=== PATIENT | male | born 1955 | race Caucasian/White ===

== ENCOUNTER 2020-09-16 08:00 | Inpatient (IN) ==
[2020-09-16] MEDS ORDERED: GLUCAGON 1 MG VIAL IM PRN ×2 (10:43)
[2020-09-16] MEDS ORDERED: DEXTROSE 50% 25 GM/50 ML VIAL IV PRN ×2 (10:43)
[2020-09-16 12:07] LABS: Basophils % 0.2 % (0.0-0.8); Eosinophils % 0.7 % (0.00-10.9); Hematocrit 39.4 VOL% (42.0-52.0); Hemoglobin 12.8 GM/DL (14.0-18.0); Immature Granulocytes % 0.5 %; Immature Granulocytes Absolute 0.03 #; Lymphocytes # 0.8 10*3/uL (1.4-4.0); Mean Corpuscular HGB Conc 32.5 GM/DL (32-36); Mean Corpuscular Volume 97.3 FL (87-102); Mean Platelet Volume 9.6 FL (9.6-12.0); Monocytes % 12.2 % (1.7-12.7); Neutrophils % 72.4 % (38.7-73.9); Platelet Count 88 T/CUMM (130-400); Red Blood Count 4.05 MC/CUMM (3.8-5.5); Red Cell Distribution Width 13.6 % (9.3-17.3)
[2020-09-16] MEDS: INSULIN REGULAR 100 UNIT/ML SUBCUT SCH ×3 (12:07→21:13)
[2020-09-16 12:29] LABS: Albumin 3.3 G/DL (3.4-5.0); Bilirubin,Total 0.5 MG/DL (0.2-1.0); Calcium 8.5 MG/DL (8.5-10.1); Osmolality,Calculated 267.4 MOS/KG (273-304); Potassium 3.5 MMOL/L (3.5-5.1); Total Protein 7.2 G/DL (6.4-8.2)
[2020-09-16] MEDS ORDERED: LOPERAMIDE 2 MG CAPSULE PO PRN (12:35)
[2020-09-16 12:37] LABS: CKMB % 3.9 %
[2020-09-16 12:40] LABS: High Sensitive Troponin I* 2822.6 ng/L (0-78)
[2020-09-16 13:02] LABS: Platelet Estimate Adequate; Polychromasia Slight
[2020-09-16] MEDS: SODIUM CHLORIDE 5% OPH SOLN 15 ML BOTTLE BOTH EYES PRN (20:56)
[2020-09-16] MEDS: CLORAZEPATE 3.75 MG TABLET PO PRN (21:13)
[2020-09-17] MEDS: INSULIN REGULAR 100 UNIT/ML SUBCUT SCH ×3 (08:12→15:47)
[2020-09-17] MEDS: carBAMazepine 200 MG TABLET PO SCH ×2 (15:45→22:37)
[2020-09-17] MEDS: LOSARTAN 50 MG TABLET PO SCH (22:35)
[2020-09-17] MEDS: carvediloL 12.5 MG TABLET PO SCH (22:36)
[2020-09-17] MEDS: CLORAZEPATE 3.75 MG TABLET PO PRN (22:36)
[2020-09-17] MEDS: SODIUM CHLORIDE 5% OPH SOLN 15 ML BOTTLE BOTH EYES PRN (22:40)
[2020-09-18] MEDS: INSULIN REGULAR 100 UNIT/ML SUBCUT SCH ×5 (00:21→23:36)
[2020-09-18] MEDS: CLORAZEPATE 3.75 MG TABLET PO PRN ×2 (04:27→22:16)
[2020-09-18 04:48] LABS: ABG Base Excess 9.3 MMOL/L (-2.5-2.5); ABG Oxygen Saturation 97.5 % (95-100); ABG PCO2 60.3 MM HG (35-48); ABG PH 7.393 (7.35-7.45); ABG PO2 95.9 MM HG (80-95); ABG TCO2 32.2 MMOL/L (23-27); Allen Test Positive; Pt O2 Delivery Device Venturi Mask
[2020-09-18 05:24] LABS: Basophils % 0.2 % (0.0-0.8); Eosinophils # 0.1 10*3/uL (0.0-0.87); Eosinophils % 2.4 % (0.00-10.9); Hematocrit 37.7 VOL% (42.0-52.0); Hemoglobin 12.9 GM/DL (14.0-18.0); Immature Granulocytes % 0.6 %; Immature Granulocytes Absolute 0.03 #; Lymphocytes # 0.8 10*3/uL (1.4-4.0); Lymphocytes % 14.8 % (21.2-54.2); Mean Corpuscular HGB Conc 34.2 GM/DL (32-36); Mean Corpuscular Volume 94.3 FL (87-102); Mean Platelet Volume 9.3 FL (9.6-12.0); Monocytes % 7.5 % (1.7-12.7); Neutrophils % 74.5 % (38.7-73.9); Platelet Count 82 T/CUMM (130-400); White Blood Count 5.3 T/CUMM (4-12)
[2020-09-18 05:45] LABS: Alanine Aminotransferase 95 U/L (16-61); Albumin 3.2 G/DL (3.4-5.0); Alkaline Phosphatase 74 U/L (45-117); Aspartate Amino Transferase 48 U/L (0-37); Blood Urea Nitrogen 7 MG/DL (7-18); Carbon Dioxide 33 MMOL/L (21-32); Estimated Glom Filtration Rate 191 ML/MIN; Glucose 96 MG/DL (74-106); Osmolality,Calculated 267.1 MOS/KG (273-304); Potassium 3.5 MMOL/L (3.5-5.1); Sodium 135 MMOL/L (136-145); Total Protein 6.7 G/DL (6.4-8.2)
[2020-09-18 06:08] LABS: Platelet Estimate Decreased
[2020-09-18 06:09] LABS: Anisocytosis 1+; Macrocytosis Slight
[2020-09-18] MEDS: CHLORHEXIDINE 4% SOLN 118 ML BOTTLE TOP SCH ×3 (08:30→21:57)
[2020-09-18] MEDS: carBAMazepine 200 MG TABLET PO SCH ×2 (09:34→22:16)
[2020-09-18] MEDS: LOSARTAN 50 MG TABLET PO SCH (09:34)
[2020-09-18] MEDS: carvediloL 25 MG TABLET PO SCH ×2 (09:34→22:16)
[2020-09-18] MEDS: FUROSEMIDE 40 MG TABLET PO SCH ×2 (09:35→18:18)
[2020-09-18] MEDS: CHLORHEXIDINE 0.12% ORAL RINSE 60 ML BOTTLE SWISH/SPIT SCH ×2 (09:36→23:25)
[2020-09-18] MEDS: carvediloL 12.5 MG TABLET PO SCH (09:55)
[2020-09-18] MEDS ORDERED: SODIUM CHLORIDE 0.9% 1,000 ML IV SCH (11:00)
[2020-09-18] MEDS: POTASSIUM CHLORIDE 20 MEQ TABLET PO PRN ×2 (13:26→16:54)
[2020-09-18] MEDS: SODIUM CHLORIDE 5% OPH SOLN 15 ML BOTTLE BOTH EYES PRN (22:48)
[2020-09-19] MEDS ORDERED: PAPAVERINE 60 MG/2 ML VIAL ONE (04:19)
[2020-09-19] MEDS ORDERED: VANCOMYCIN 500 MG VIAL ONE (04:19)
[2020-09-19] MEDS ORDERED: VANCOMYCIN 1,000 MG VIAL ONE (04:19)
[2020-09-19] MEDS ORDERED: CEFUROXIME INJ 1,500 MG in SODIUM CHLORIDE 0.9% 100 ML IV ONE (05:00)
[2020-09-19] MEDS ORDERED: FAMOTIDINE 20 MG TABLET PO ONE (05:45)
[2020-09-19] MEDS ORDERED: DIAZEPAM 5 MG TABLET PO ONE (05:45)
[2020-09-19] MEDS ORDERED: SEVOFLURANE 1 UNIT/15 MINUTE INH ONE ×19 (06:00→12:18)
[2020-09-19] MEDS ORDERED: NITROGLYCERIN DRIP 50 MG/250 ML BOTTLE IV ONE (06:00)
[2020-09-19] MEDS ORDERED: MIDAZOLAM 10 MG/2 ML VIAL ONE ×2 (06:00→06:01)
[2020-09-19] MEDS ORDERED: HEPARIN/NACL 0.9% 2 UNITS/ML 1,000 UNIT/500 ML BAG IV ONE (06:00)
[2020-09-19] MEDS ORDERED: SUFentanil 250 MCG/5 ML AMP ONE (06:01)
[2020-09-19] MEDS ORDERED: PHENYLEPHRINE DRIP 0 MG/0 ML PREMIX IV ONE (06:01)
[2020-09-19] MEDS ORDERED: ePHEDrine 50 MG/ML VIAL ONE (06:02)
[2020-09-19] MEDS: carvediloL 25 MG TABLET PO SCH ×2 (06:14→08:39)
[2020-09-19] MEDS: carBAMazepine 200 MG TABLET PO SCH ×2 (06:16→08:40)
[2020-09-19] MEDS: LOSARTAN 50 MG TABLET PO SCH ×2 (06:17→08:39)
[2020-09-19] MEDS: CHLORHEXIDINE 0.12% ORAL RINSE 60 ML BOTTLE SWISH/SPIT SCH ×3 (06:20→21:15)
[2020-09-19] MEDS ORDERED: LIDOCAINE 2% 5 ML VIAL ONE ×3 (06:38→10:46)
[2020-09-19] MEDS ORDERED: VECURONIUM 10 MG VIAL IV ONE ×2 (06:38→08:41)
[2020-09-19] MEDS ORDERED: PHENYLEPHRINE DRIP 20 MG/250 ML PREMIX IV ONE ×2 (06:38→10:23)
[2020-09-19] MEDS ORDERED: PHENYLEPHRINE 1 MG/10 ML SYRINGE IV ONE ×2 (06:38→10:06)
[2020-09-19] MEDS ORDERED: ETOMIDATE 40 MG/20 ML VIAL IV ONE (06:38)
[2020-09-19] MEDS ORDERED: AMINOCAPROIC ACID 5,000 MG/20 ML VIAL ONE (06:39)
[2020-09-19] MEDS ORDERED: SUCCINYLCHOLINE 200 MG/10 ML VIAL ONE (06:57)
[2020-09-19 07:32] LABS: ABG Base Excess 7.2 MMOL/L (-2.5-2.5); ABG PH 7.447 (7.35-7.45); ABG TCO2 28.3 MMOL/L (23-27); Glucose Heart Surgery 135 MG/DL (74-106); Hematocrit Heart Surgery 39.5 PERCENT (42-52); Hemoglobin Heart Surgery 12.9 G/DL (14.0-18.0); Ionized Calcium Arterial 1.06 MMOL/L (1.21-1.46); PH Patient Temp Arterial 7.447; Patient Temperature 37 CELCIUS; Potassium Heart/CVR 4.2 MMOL/L (3.5-5.1); Sodium Heart/CVR 134 MMOL/L (135-145)
[2020-09-19] MEDS ORDERED: MINERAL OIL/PETROLATUM OPH OINT 3.5 GM TUBE ONE (07:52)
[2020-09-19 07:54] LABS: Bilirubin,Urine Negative (Negative); Blood, Urine Negative (Negative); Glucose,Urine (UA) Negative (Negative); Hyaline Casts,Urine 1 /LPF (0-3); Ketones,Urine Negative (Negative); Nitrite,Urine Negative (Negative); Protein,Urine 30 MG/DL; RBC,Urine 2 /HPF (0-4); Urine Appearance CLEAR (Clear); Urine Color Yellow (Yellow); Urine Specific Gravity 1.014 (1.001-1.035)
[2020-09-19] MEDS ORDERED: PHENYLEPHRINE DRIP 40 MG/250 ML PREMIX IV ONE (08:17)
[2020-09-19] MEDS: FUROSEMIDE 40 MG TABLET PO SCH (08:39)
[2020-09-19] MEDS: INSULIN REGULAR 100 UNIT/ML SUBCUT SCH ×2 (08:39→23:59)
[2020-09-19] MEDS ORDERED: AMIODARONE 150 MG/3 ML VIAL ONE (09:04)
[2020-09-19 09:20] LABS: Hematocrit Heart Surgery 31.2 PERCENT (42-52); Hemoglobin Heart Surgery 10.1 G/DL (14.0-18.0); PCO2 Patient Temp Venous 35.5 MM HG; PH Patient Temp Venous 7.532; PO2 Patient Temp Venous 32.6 MM HG; Potassium Heart/CVR 4.3 MMOL/L (3.5-5.1); VBG HCO3 30.5 MEQ/L (24-28); VBG Oxygen Saturation 77.5 %; VBG PCO2 41.1 MMHG (41-51); VBG PH 7.487; VBG PO2 40.2 MMHG (17-40); VBG Total CO2 28.2 MMOL/L
[2020-09-19 09:51] LABS: Hemoglobin Heart Surgery 10.8 G/DL (14.0-18.0); PCO2 Patient Temp Venous 35.8 MM HG; PH Patient Temp Venous 7.536; PO2 Patient Temp Venous 40.7 MM HG; Potassium Heart/CVR 4.2 MMOL/L (3.5-5.1); VBG Base Excess 6.6 MEQ/L (0-4); VBG HCO3 30.2 MEQ/L (24-28); VBG Oxygen Saturation 83.2 %; VBG PCO2 39.1 MMHG (41-51); VBG PH 7.505; VBG PO2 46.8 MMHG (17-40); VBG Total CO2 31.4 MMOL/L
[2020-09-19] MEDS ORDERED: CALCIUM CHLORIDE 1,000 MG/10 ML VIAL IV ONE ×2 (10:07→10:49)
[2020-09-19 10:39] LABS: ABG Base Excess 4.7 MMOL/L (-2.5-2.5); ABG HCO3 27.7 MMOL/L (20-26); ABG PCO2 35.3 MM HG (35-48); ABG PH 7.513 (7.35-7.45); ABG PO2 224.6 MM HG (80-95); ABG TCO2 28.8 MMOL/L (23-27); Glucose Heart Surgery 203 MG/DL (74-106); Hemoglobin Heart Surgery 11.3 G/DL (14.0-18.0); Ionized Calcium Arterial 1.19 MMOL/L (1.21-1.46); PCO2 Patient Temp Arterial 35.3 MMHG; PH Patient Temp Arterial 7.513; PO2 Patient Temp Arterial 224.6 MM HG; Patient Temperature 37 CELCIUS; Potassium Heart/CVR 3.7 MMOL/L (3.5-5.1); Sodium Heart/CVR 132 MMOL/L (135-145)
[2020-09-19] MEDS ORDERED: ALBUMIN 5% 25.0 GM/500 ML VIAL IV ONE (10:41)
[2020-09-19] MEDS ORDERED: MAGNESIUM SULFATE 5 GM/10 ML VIAL IV ONE (10:46)
[2020-09-19] MEDS ORDERED: ALBUMIN 25% 25 GM/100 ML VIAL IV ONE (10:46)
[2020-09-19] MEDS ORDERED: DEXTROSE 5% KCL 20 MEQ 20 MEQ/1,000 ML BAG IV ONE (10:46)
[2020-09-19] MEDS ORDERED: MANNITOL 100 GM/500 ML BAG IV ONE (10:47)
[2020-09-19] MEDS ORDERED: PROTAMINE SULFATE 250 MG/25 ML VIAL IV ONE (10:47)
[2020-09-19] MEDS ORDERED: FUROSEMIDE 20 MG/2 ML VIAL ONE (10:47)
[2020-09-19] MEDS ORDERED: HEPARIN 10,000 UNIT/10 ML VIAL ONE (10:47)
[2020-09-19] MEDS ORDERED: SODIUM BICARBONATE 50 MEQ/50 ML VIAL IV ONE (10:47)
[2020-09-19] MEDS ORDERED: INSULIN REGULAR 100 UNIT/ML IV ONE (10:52)
[2020-09-19] MEDS ORDERED: MAGNESIUM SULF RIDER 4 GM/100 ML PREMIX IV PRN (10:52)
[2020-09-19] MEDS ORDERED: DEXTROSE 50% 25 GM/50 ML VIAL IV PRN ×2 (10:52)
[2020-09-19] MEDS ORDERED: CALCIUM CHLORIDE 1,000 MG/10 ML SYRINGE IV PRN (10:52)
[2020-09-19] MEDS ORDERED: VECURONIUM 10 MG VIAL IV PRN ×2 (10:52)
[2020-09-19] MEDS ORDERED: ACETAMINOPHEN 650 MG SUPP RECTAL PRN (10:52)
[2020-09-19] MEDS ORDERED: POTASSIUM CHLORIDE RIDER 10 MEQ/100 ML PREMIX IV PRN (10:52)
[2020-09-19] MEDS ORDERED: ONDANSETRON 4 MG/2 ML VIAL IV PRN (10:52)
[2020-09-19] MEDS ORDERED: PHENYLEPHRINE DRIP 40 MG/250 ML PREMIX IV PRN (10:52)
[2020-09-19] MEDS ORDERED: MAGNESIUM SULF RIDER 2 GM/50 ML PREMIX IV PRN (10:52)
[2020-09-19] MEDS ORDERED: LACTATED RINGERS 250 ML IV PRN (10:52)
[2020-09-19] MEDS ORDERED: INSULIN REGULAR 100 UNIT/ML IV PRN (10:52)
[2020-09-19] MEDS ORDERED: MORPHINE 4 MG/1 ML VIAL IV PRN (10:52)
[2020-09-19] MEDS ORDERED: NITROPRUSSIDE 100 MG in DEXTROSE 5% 250 ML IV PRN (10:52)
[2020-09-19] MEDS ORDERED: MIDAZOLAM 2 MG/2 ML VIAL IV PRN (10:52)
[2020-09-19] MEDS ORDERED: CHLORHEXIDINE 4% SOLN 118 ML BOTTLE TOP PRN (10:52)
[2020-09-19] MEDS ORDERED: INSULIN REGULAR DRIP 100 ML IV SCH (11:00)
[2020-09-19] MEDS ORDERED: SODIUM CHLORIDE 0.45% 1,000 ML IV SCH (11:00)
[2020-09-19] MEDS: SODIUM CHLORIDE 0.45% 1,000 ML IV SCH (11:14)
[2020-09-19 11:46] LABS: ABG Base Excess 4.9 MMOL/L (-2.5-2.5); ABG HCO3 28.8 MMOL/L (20-26); ABG Oxygen Saturation 99.6 % (95-100); ABG PCO2 42.9 MM HG (35-48); ABG PH 7.446 (7.35-7.45); ABG TCO2 25.9 MMOL/L (23-27); Glucose Heart Surgery 185 MG/DL (74-106); Hematocrit Heart Surgery 37.7 PERCENT (42-52); Hemoglobin Heart Surgery 12.2 G/DL (14.0-18.0); Potassium Heart/CVR 3.4 MMOL/L (3.5-5.1)
[2020-09-19 11:47] LABS: Basophils % 0.1 % (0.0-0.8); Eosinophils # 0.1 10*3/uL (0.0-0.87); Eosinophils % 0.8 % (0.00-10.9); Hematocrit 36.3 VOL% (42.0-52.0); Immature Granulocytes % 1.4 %; Immature Granulocytes Absolute 0.21 #; Lymphocytes # 1.1 10*3/uL (1.4-4.0); Lymphocytes % 7.3 % (21.2-54.2); Mean Corpuscular HGB Conc 33.1 GM/DL (32-36); Mean Platelet Volume 9.5 FL (9.6-12.0); Neutrophils % 86.4 % (38.7-73.9); Platelet Count 145 T/CUMM (130-400); Red Blood Count 3.82 MC/CUMM (3.8-5.5); Red Cell Distribution Width 13.2 % (9.3-17.3); White Blood Count 15.4 T/CUMM (4-12)
[2020-09-19 11:59] LABS: INR 1.2; PT Patient Result 13.4 SECS (10.5-12.0); Partial Thromboplastin Time 25.1 SECS (23.9-33.8)
[2020-09-19 12:14] LABS: CKMB % 4.9 %
[2020-09-19 12:19] LABS: High Sensitive Troponin I* 3027.2 ng/L (0-78)
[2020-09-19 12:21] LABS: Albumin 3.2 G/DL (3.4-5.0); Bilirubin,Total 1.3 MG/DL (0.2-1.0); Calcium 9.3 MG/DL (8.5-10.1); Osmolality,Calculated 275.8 MOS/KG (273-304); Potassium 3.3 MMOL/L (3.5-5.1); Total Protein 6.4 G/DL (6.4-8.2)
[2020-09-19] MEDS: ALBUMIN 5% 12.5 GM/250 ML VIAL IV PRN ×6 (12:22→23:21)
[2020-09-19] MEDS: POTASSIUM CHLORIDE RIDER 20 MEQ/100 ML PREMIX IV PRN ×3 (12:27→21:44)
[2020-09-19] MEDS: LACTATED RINGERS 1,000 ML IV PRN ×4 (12:33→18:11)
[2020-09-19] MEDS: MIDAZOLAM 10 MG/2 ML VIAL IV PRN ×2 (13:00→13:09)
[2020-09-19 13:17] LABS: ABG Base Excess 4.2 MMOL/L (-2.5-2.5); ABG HCO3 28.2 MMOL/L (20-26); ABG Oxygen Saturation 98.7 % (95-100); ABG PCO2 46.4 MM HG (35-48); ABG PH 7.412 (7.35-7.45); ABG TCO2 26.2 MMOL/L (23-27); Glucose Heart Surgery 171 MG/DL (74-106); Hematocrit Heart Surgery 36.8 PERCENT (42-52); Hemoglobin Heart Surgery 11.9 G/DL (14.0-18.0)
[2020-09-19] MEDS ORDERED: HALOPERIDOL 5 MG/ML AMP IV ONE (13:59)
[2020-09-19 15:21] LABS: ABG HCO3 28.7 MMOL/L (20-26); ABG Oxygen Saturation 96.8 % (95-100); ABG PCO2 43.7 MM HG (35-48); ABG PH 7.435 (7.35-7.45); ABG PO2 93.1 MM HG (80-95); Glucose Heart Surgery 175 MG/DL (74-106); Potassium Heart/CVR 4.1 MMOL/L (3.5-5.1)
[2020-09-19] MEDS: DEXMEDETOMIDINE 400 MCG in SODIUM CHLORIDE 0.9% 96 ML IV PRN ×2 (16:11→20:52)
[2020-09-19] MEDS: MORPHINE 10 MG/1 ML VIAL IV PRN (16:28)
[2020-09-19 18:04] LABS: ABG Base Excess 3.8 MMOL/L (-2.5-2.5); ABG HCO3 27.8 MMOL/L (20-26); ABG Oxygen Saturation 95.1 % (95-100); ABG PCO2 45.1 MM HG (35-48); ABG PH 7.415 (7.35-7.45); ABG PO2 75.6 MM HG (80-95); ABG TCO2 26.3 MMOL/L (23-27); Glucose Heart Surgery 185 MG/DL (74-106); Hematocrit Heart Surgery 31.2 PERCENT (42-52); Hemoglobin Heart Surgery 10.1 G/DL (14.0-18.0); Potassium Heart/CVR 4.1 MMOL/L (3.5-5.1)
[2020-09-19] MEDS: CEFUROXIME INJ 1,500 MG in SODIUM CHLORIDE 0.9% 100 ML IV SCH (18:06)
[2020-09-19 19:37] LABS: ABG Base Excess 3.7 MMOL/L (-2.5-2.5); ABG HCO3 28.6 MMOL/L (20-26); ABG Oxygen Saturation 94.2 % (95-100); ABG PCO2 44.6 MM HG (35-48); ABG PH 7.425 (7.35-7.45); ABG PO2 74.9 MM HG (80-95); Glucose Heart Surgery 187 MG/DL (74-106); Hemoglobin Heart Surgery 10.7 G/DL (14.0-18.0); Potassium Heart/CVR 4.2 MMOL/L (3.5-5.1)
[2020-09-19] MEDS ORDERED: FUROSEMIDE 40 MG/4 ML VIAL IV ONE (19:38)
[2020-09-19 20:02] LABS: CKMB % 3.5 %; High Sensitive Troponin I* 2161.2 ng/L (0-78)
[2020-09-19 20:38] LABS: ABG Base Excess 3.4 MMOL/L (-2.5-2.5); ABG HCO3 28.3 MMOL/L (20-26); ABG PCO2 44.2 MM HG (35-48); ABG PH 7.424 (7.35-7.45); ABG TCO2 29.6 MMOL/L (23-27); Glucose Heart Surgery 185 MG/DL (74-106); Hemoglobin Heart Surgery 10.6 G/DL (14.0-18.0); Potassium Heart/CVR 4.2 MMOL/L (3.5-5.1)
[2020-09-19 23:32] LABS: ABG Base Excess 4.3 MMOL/L (-2.5-2.5); ABG HCO3 28.2 MMOL/L (20-26); ABG Oxygen Saturation 97.8 % (95-100); ABG PCO2 44.6 MM HG (35-48); ABG PH 7.424 (7.35-7.45); ABG PO2 94.6 MM HG (80-95); ABG TCO2 26.7 MMOL/L (23-27); Glucose Heart Surgery 169 MG/DL (74-106); Hematocrit Heart Surgery 29.6 PERCENT (42-52); Hemoglobin Heart Surgery 9.6 G/DL (14.0-18.0); Potassium Heart/CVR 4.3 MMOL/L (3.5-5.1)
[2020-09-20] MEDS: POTASSIUM CHLORIDE RIDER 20 MEQ/100 ML PREMIX IV PRN (00:01)
[2020-09-20 00:17] LABS: ABG Base Excess 4.1 MMOL/L (-2.5-2.5); ABG HCO3 29.9 MMOL/L (20-26); ABG Oxygen Saturation 96.6 % (95-100); ABG PCO2 50.8 MM HG (35-48); ABG PH 7.387 (7.35-7.45); ABG PO2 94.6 MM HG (80-95); ABG TCO2 31.4 MMOL/L (23-27); Glucose Heart Surgery 163 MG/DL (74-106); Hemoglobin Heart Surgery 10.2 G/DL (14.0-18.0); Potassium Heart/CVR 4.5 MMOL/L (3.5-5.1)
[2020-09-20 00:59] LABS: ABG Base Excess 4.1 MMOL/L (-2.5-2.5); ABG HCO3 28.1 MMOL/L (20-26); ABG Oxygen Saturation 98.5 % (95-100); ABG PCO2 50.8 MM HG (35-48); ABG PH 7.379 (7.35-7.45); ABG TCO2 27.6 MMOL/L (23-27); Glucose Heart Surgery 163 MG/DL (74-106); Hematocrit Heart Surgery 28.4 PERCENT (42-52); Hemoglobin Heart Surgery 9.1 G/DL (14.0-18.0); Potassium Heart/CVR 4.5 MMOL/L (3.5-5.1)
[2020-09-20 04:00] LABS: ABG Base Excess 5.6 MMOL/L (-2.5-2.5); ABG HCO3 29.5 MMOL/L (20-26); ABG Oxygen Saturation 99.2 % (95-100); ABG PCO2 46.2 MM HG (35-48); ABG TCO2 27.8 MMOL/L (23-27); Glucose Heart Surgery 138 MG/DL (74-106); Hematocrit Heart Surgery 31.2 PERCENT (42-52); Hemoglobin Heart Surgery 10.1 G/DL (14.0-18.0); Potassium Heart/CVR 4.1 MMOL/L (3.5-5.1)
[2020-09-20 04:07] LABS: Hematocrit 29.9 VOL% (42.0-52.0); Hemoglobin 9.9 GM/DL (14.0-18.0); Immature Granulocytes % 0.5 %; Immature Granulocytes Absolute 0.03 #; Lymphocytes # 1.1 10*3/uL (1.4-4.0); Lymphocytes % 17.1 % (21.2-54.2); Mean Corpuscular HGB Conc 33.1 GM/DL (32-36); Mean Corpuscular Volume 96.8 FL (87-102); Mean Platelet Volume 9.5 FL (9.6-12.0); Neutrophils % 74.4 % (38.7-73.9); Platelet Count 92 T/CUMM (130-400); Red Blood Count 3.09 MC/CUMM (3.8-5.5); Red Cell Distribution Width 13.4 % (9.3-17.3); White Blood Count 6.1 T/CUMM (4-12)
[2020-09-20 04:23] LABS: Platelet Estimate Decreased
[2020-09-20 04:24] LABS: Hypochromasia 1+; Microcytosis 1+
[2020-09-20 04:34] LABS: Albumin 3.6 G/DL (3.4-5.0); Bilirubin,Direct 0.27 MG/DL (0.0-0.20); Bilirubin,Total 0.9 MG/DL (0.2-1.0); CKMB % 2.9 %; Calcium 8.2 MG/DL (8.5-10.1); High Sensitive Troponin I* 1845.2 ng/L (0-78); Osmolality,Calculated 273.8 MOS/KG (273-304); Potassium 4.2 MMOL/L (3.5-5.1); Total Protein 6.2 G/DL (6.4-8.2)
[2020-09-20 04:40] LABS: ABG Base Excess 6.1 MMOL/L (-2.5-2.5); ABG Oxygen Saturation 98.4 % (95-100); ABG PCO2 43.5 MM HG (35-48); ABG PH 7.456 (7.35-7.45); ABG PO2 99.7 MM HG (80-95); ABG TCO2 27.8 MMOL/L (23-27); Glucose Heart Surgery 145 MG/DL (74-106); Hematocrit Heart Surgery 31.1 PERCENT (42-52); Hemoglobin Heart Surgery 10.1 G/DL (14.0-18.0); Potassium Heart/CVR 4.2 MMOL/L (3.5-5.1)
[2020-09-20 05:14] LABS: ABG Base Excess 6.1 MMOL/L (-2.5-2.5); ABG Oxygen Saturation 98.7 % (95-100); ABG PCO2 44.9 MM HG (35-48); ABG PH 7.446 (7.35-7.45); ABG TCO2 28.1 MMOL/L (23-27); Glucose Heart Surgery 146 MG/DL (74-106); Hematocrit Heart Surgery 30.3 PERCENT (42-52); Hemoglobin Heart Surgery 9.8 G/DL (14.0-18.0)
[2020-09-20 06:13] LABS: ABG Base Excess 5.4 MMOL/L (-2.5-2.5); ABG HCO3 30.2 MMOL/L (20-26); ABG Oxygen Saturation 96.9 % (95-100); ABG PCO2 45.1 MM HG (35-48); ABG PH 7.443 (7.35-7.45); ABG TCO2 31.5 MMOL/L (23-27); Glucose Heart Surgery 146 MG/DL (74-106); Hemoglobin Heart Surgery 10.6 G/DL (14.0-18.0); Potassium Heart/CVR 3.9 MMOL/L (3.5-5.1)
[2020-09-20] MEDS: INSULIN REGULAR 100 UNIT/ML SUBCUT SCH ×5 (07:05→18:42)
[2020-09-20] MEDS: CEFUROXIME INJ 1,500 MG in SODIUM CHLORIDE 0.9% 100 ML IV SCH ×2 (07:10→18:31)
[2020-09-20] MEDS: ASPIRIN EC 325 MG TABLET PO SCH (08:12)
[2020-09-20] MEDS: LOSARTAN 50 MG TABLET PO SCH (08:13)
[2020-09-20] MEDS: CALCIUM (CARBONATE) 600 MG TABLET PO SCH (08:13)
[2020-09-20] MEDS: TAMSULOSIN 0.4 MG CAPSULE PO SCH (08:13)
[2020-09-20] MEDS: CETIRIZINE 10 MG TABLET PO SCH (08:14)
[2020-09-20] MEDS: OMEGA 3 ACID ETHYL ESTERS 1 GM CAPSULE PO SCH ×2 (08:14→21:07)
[2020-09-20] MEDS: OMEPRAZOLE ODT 20 MG TABLET PO SCH ×2 (08:14→21:07)
[2020-09-20] MEDS: clonazePAM 0.5 MG TABLET PO SCH ×2 (08:14→21:06)
[2020-09-20] MEDS: carvediloL 25 MG TABLET PO SCH ×3 (08:15→20:07)
[2020-09-20] MEDS: MAGNESIUM OXIDE 400 MG TABLET PO SCH (08:15)
[2020-09-20] MEDS: CHOLECALCIFEROL 400 UNIT TABLET PO SCH (08:16)
[2020-09-20] MEDS: carBAMazepine 200 MG TABLET PO SCH ×2 (08:16→21:08)
[2020-09-20] MEDS: valACYclovir 500 MG TABLET PO SCH (08:17)
[2020-09-20] MEDS ORDERED: carBAMazepine 200 MG TABLET PO SCH (09:00)
[2020-09-20] MEDS: CHLORHEXIDINE 0.12% ORAL RINSE 60 ML BOTTLE SWISH/SPIT SCH ×2 (15:36→21:07)
[2020-09-20] MEDS: SODIUM CHLORIDE 0.45% 1,000 ML IV SCH (15:37)
[2020-09-20] MEDS ORDERED: ACETAMINOPHEN 325 MG TABLET PO PRN (18:14)
[2020-09-20] MEDS: MORPHINE 10 MG/1 ML VIAL IV PRN (18:38)
[2020-09-20] MEDS: ATORVASTATIN 40 MG TABLET PO SCH (21:07)
[2020-09-21] MEDS: INSULIN REGULAR 100 UNIT/ML SUBCUT SCH ×7 (00:31→20:22)
[2020-09-21 04:30] LABS: Basophils % 0.2 % (0.0-0.8); Eosinophils % 0.4 % (0.00-10.9); Hematocrit 30.5 VOL% (42.0-52.0); Immature Granulocytes % 0.8 %; Immature Granulocytes Absolute 0.07 #; Lymphocytes % 10.9 % (21.2-54.2); Mean Corpuscular HGB Conc 32.8 GM/DL (32-36); Mean Corpuscular Volume 96.8 FL (87-102); Mean Platelet Volume 9.8 FL (9.6-12.0); Monocytes % 8.8 % (1.7-12.7); Neutrophils % 78.9 % (38.7-73.9); Platelet Count 100 T/CUMM (130-400); Red Blood Count 3.15 MC/CUMM (3.8-5.5); Red Cell Distribution Width 13.6 % (9.3-17.3)
[2020-09-21 04:40] LABS: Albumin 3.3 G/DL (3.4-5.0); Bilirubin,Direct 0.24 MG/DL (0.0-0.20); Bilirubin,Total 0.7 MG/DL (0.2-1.0); Calcium 7.9 MG/DL (8.5-10.1); Osmolality,Calculated 281.3 MOS/KG (273-304); Potassium 3.8 MMOL/L (3.5-5.1); Total Protein 6.3 G/DL (6.4-8.2)
[2020-09-21 04:54] LABS: Hypochromasia 1+; Microcytosis 1+
[2020-09-21 04:55] LABS: Platelet Estimate Decreased
[2020-09-21] MEDS ORDERED: ALBUTEROL/IPRATROPIUM 3 ML NEB RESP TX ONE (08:33)
[2020-09-21] MEDS ORDERED: FUROSEMIDE 40 MG/4 ML VIAL IV ONE (08:34)
[2020-09-21] MEDS: METOPROLOL TARTRATE 50 MG TABLET PO SCH ×2 (09:30→20:20)
[2020-09-21] MEDS: CALCIUM (CARBONATE) 600 MG TABLET PO SCH (09:30)
[2020-09-21] MEDS: CHLORHEXIDINE 0.12% ORAL RINSE 60 ML BOTTLE SWISH/SPIT SCH ×2 (09:30→20:22)
[2020-09-21] MEDS: valACYclovir 500 MG TABLET PO SCH (09:30)
[2020-09-21] MEDS: TAMSULOSIN 0.4 MG CAPSULE PO SCH (09:30)
[2020-09-21] MEDS: LOSARTAN 50 MG TABLET PO SCH (09:30)
[2020-09-21] MEDS: CETIRIZINE 10 MG TABLET PO SCH (09:30)
[2020-09-21] MEDS: clonazePAM 0.5 MG TABLET PO SCH ×2 (09:30→20:19)
[2020-09-21] MEDS: OMEPRAZOLE ODT 20 MG TABLET PO SCH ×2 (09:30→20:20)
[2020-09-21] MEDS: carBAMazepine 200 MG TABLET PO SCH ×2 (09:30→20:19)
[2020-09-21] MEDS: MAGNESIUM OXIDE 400 MG TABLET PO SCH (09:30)
[2020-09-21] MEDS: OMEGA 3 ACID ETHYL ESTERS 1 GM CAPSULE PO SCH ×2 (09:30→20:19)
[2020-09-21] MEDS: CHOLECALCIFEROL 400 UNIT TABLET PO SCH (09:30)
[2020-09-21] MEDS: ASPIRIN EC 325 MG TABLET PO SCH (09:30)
[2020-09-21] MEDS: POTASSIUM CHLORIDE RIDER 20 MEQ/100 ML PREMIX IV PRN (09:54)
[2020-09-21] MEDS ORDERED: AMIODARONE INJ 150 MG in DEXTROSE 5% 100 ML IV ONE (09:56)
[2020-09-21] MEDS ORDERED: AMIODARONE 150 MG/3 ML VIAL ONE (09:57)
[2020-09-21] MEDS ORDERED: AMIODARONE 450 MG/9 ML VIAL IV ONE (09:57)
[2020-09-21] MEDS ORDERED: AMIODARONE INJ 450 MG in DEXTROSE 5% 241 ML IV SCH ×2 (10:30→16:00)
[2020-09-21] MEDS: ALBUTEROL/IPRATROPIUM 3 ML NEB RESP TX SCH ×2 (12:26→19:49)
[2020-09-21] MEDS: ATORVASTATIN 40 MG TABLET PO SCH (20:20)
[2020-09-21] MEDS: AMIODARONE INJ 450 MG in DEXTROSE 5% 241 ML IV SCH (20:24)
[2020-09-22] MEDS: ALBUTEROL/IPRATROPIUM 3 ML NEB RESP TX SCH ×4 (00:12→19:13)
[2020-09-22 04:26] LABS: Basophils % 0.2 % (0.0-0.8); Eosinophils # 0.1 10*3/uL (0.0-0.87); Eosinophils % 0.8 % (0.00-10.9); Hematocrit 30.6 VOL% (42.0-52.0); Hemoglobin 10.1 GM/DL (14.0-18.0); Immature Granulocytes % 0.9 %; Immature Granulocytes Absolute 0.09 #; Lymphocytes # 1.4 10*3/uL (1.4-4.0); Lymphocytes % 14.6 % (21.2-54.2); Mean Corpuscular Volume 96.8 FL (87-102); Mean Platelet Volume 9.8 FL (9.6-12.0); Monocytes % 7.7 % (1.7-12.7); NRBC # 0.02 10*3/uL; Neutrophils % 75.8 % (38.7-73.9); Platelet Count 100 T/CUMM (130-400); Red Blood Count 3.16 MC/CUMM (3.8-5.5); Red Cell Distribution Width 13.2 % (9.3-17.3); White Blood Count 9.5 T/CUMM (4-12)
[2020-09-22 04:46] LABS: Bilirubin,Direct 0.24 MG/DL (0.0-0.20); Bilirubin,Total 0.7 MG/DL (0.2-1.0); Calcium 7.8 MG/DL (8.5-10.1); Osmolality,Calculated 278.5 MOS/KG (273-304); Potassium 3.8 MMOL/L (3.5-5.1); Total Protein 6.2 G/DL (6.4-8.2)
[2020-09-22 05:10] LABS: Calcium 7.9 MG/DL (8.5-10.1); Osmolality,Calculated 278.5 MOS/KG (273-304); Potassium 3.8 MMOL/L (3.5-5.1)
[2020-09-22] MEDS ORDERED: POTASSIUM CHLORIDE 20 MEQ TABLET PO PRN (07:09)
[2020-09-22] MEDS: INSULIN REGULAR 100 UNIT/ML SUBCUT SCH ×4 (07:31→20:48)
[2020-09-22] MEDS ORDERED: SODIUM CHLORIDE 5% OPH SOLN 15 ML BOTTLE BOTH EYES PRN (07:48)
[2020-09-22] MEDS: CHLORHEXIDINE 0.12% ORAL RINSE 60 ML BOTTLE SWISH/SPIT SCH ×2 (08:10→20:48)
[2020-09-22] MEDS: OMEPRAZOLE ODT 20 MG TABLET PO SCH ×2 (08:10→20:46)
[2020-09-22] MEDS: carBAMazepine 200 MG TABLET PO SCH ×2 (08:10→20:45)
[2020-09-22] MEDS: valACYclovir 500 MG TABLET PO SCH (08:10)
[2020-09-22] MEDS: CETIRIZINE 10 MG TABLET PO SCH (08:11)
[2020-09-22] MEDS: CALCIUM (CARBONATE) 600 MG TABLET PO SCH (08:11)
[2020-09-22] MEDS: LOSARTAN 50 MG TABLET PO SCH (08:11)
[2020-09-22] MEDS: MAGNESIUM OXIDE 400 MG TABLET PO SCH (08:11)
[2020-09-22] MEDS: ASPIRIN EC 325 MG TABLET PO SCH (08:11)
[2020-09-22] MEDS: TAMSULOSIN 0.4 MG CAPSULE PO SCH (08:11)
[2020-09-22] MEDS: CHOLECALCIFEROL 400 UNIT TABLET PO SCH (08:12)
[2020-09-22] MEDS: METOPROLOL TARTRATE 50 MG TABLET PO SCH ×2 (08:12→20:46)
[2020-09-22] MEDS: clonazePAM 0.5 MG TABLET PO SCH ×2 (08:12→20:45)
[2020-09-22] MEDS: OMEGA 3 ACID ETHYL ESTERS 1 GM CAPSULE PO SCH ×2 (08:12→20:46)
[2020-09-22] MEDS: AMIODARONE INJ 450 MG in DEXTROSE 5% 241 ML IV SCH ×2 (08:12→13:55)
[2020-09-22] MEDS: AMIODARONE 200 MG TABLET PO SCH ×2 (10:30→20:46)
[2020-09-22] MEDS: FUROSEMIDE 40 MG TABLET PO SCH ×2 (10:30→16:43)
[2020-09-22] MEDS ORDERED: DEXTROSE 50% 25 GM/50 ML VIAL IV PRN ×2 (10:33)
[2020-09-22] MEDS ORDERED: MAGNESIUM HYDROXIDE SUSP 30 ML UDCUP PO PRN (10:33)
[2020-09-22] MEDS ORDERED: ONDANSETRON 4 MG/2 ML VIAL IV PRN (10:33)
[2020-09-22] MEDS ORDERED: MAGNESIUM SULF RIDER 4 GM/100 ML PREMIX IV PRN (10:33)
[2020-09-22] MEDS ORDERED: GLUCAGON 1 MG VIAL IM PRN ×2 (10:33)
[2020-09-22] MEDS ORDERED: ZALEPLON 5 MG CAPSULE PO PRN (10:33)
[2020-09-22] MEDS ORDERED: MAGNESIUM SULF RIDER 2 GM/50 ML PREMIX IV PRN (10:33)
[2020-09-22] MEDS ORDERED: ACETAMINOPHEN 325 MG TABLET PO PRN (10:33)
[2020-09-22] MEDS ORDERED: oxyCODONE/ACETAMINOPHEN 5-325 MG TABLET PO PRN (10:33)
[2020-09-22] MEDS ORDERED: ALUMINUM/MAGNES/SIMETH MAX STR 30 ML UDCUP PO PRN (10:33)
[2020-09-23] MEDS: ALBUTEROL/IPRATROPIUM 3 ML NEB RESP TX SCH ×4 (00:53→19:44)
[2020-09-23 03:50] LABS: Basophils % 0.1 % (0.0-0.8); Eosinophils # 0.1 10*3/uL (0.0-0.87); Eosinophils % 1.7 % (0.00-10.9); Hematocrit 30.8 VOL% (42.0-52.0); Hemoglobin 10.1 GM/DL (14.0-18.0); Immature Granulocytes % 0.9 %; Immature Granulocytes Absolute 0.07 #; Lymphocytes % 12.7 % (21.2-54.2); Mean Corpuscular HGB Conc 32.8 GM/DL (32-36); Mean Corpuscular Volume 97.2 FL (87-102); Mean Platelet Volume 9.6 FL (9.6-12.0); Monocytes % 7.4 % (1.7-12.7); Neutrophils % 77.2 % (38.7-73.9); Platelet Count 110 T/CUMM (130-400); Red Blood Count 3.17 MC/CUMM (3.8-5.5); Red Cell Distribution Width 13.2 % (9.3-17.3); White Blood Count 7.8 T/CUMM (4-12)
[2020-09-23 04:14] LABS: Alanine Aminotransferase 87 U/L (16-61); Albumin 2.9 G/DL (3.4-5.0); Alkaline Phosphatase 100 U/L (45-117); Aspartate Amino Transferase 71 U/L (0-37); Bilirubin,Indirect 0.6 MG/DL (0.0-1.0); Blood Urea Nitrogen 11 MG/DL (7-18); Calcium 7.9 MG/DL (8.5-10.1); Carbon Dioxide 34 MMOL/L (21-32); Estimated Glom Filtration Rate 167 ML/MIN; Glucose 128 MG/DL (74-106); Osmolality,Calculated 277.5 MOS/KG (273-304); Potassium 3.7 MMOL/L (3.5-5.1); Sodium 139 MMOL/L (136-145)
[2020-09-23] MEDS ORDERED: FUROSEMIDE 40 MG/4 ML VIAL IV ONE (06:00)
[2020-09-23] MEDS: POTASSIUM CHLORIDE 20 MEQ TABLET PO PRN ×2 (06:37→08:33)
[2020-09-23] MEDS: TAMSULOSIN 0.4 MG CAPSULE PO SCH (08:30)
[2020-09-23] MEDS: clonazePAM 0.5 MG TABLET PO SCH ×2 (08:31→20:59)
[2020-09-23] MEDS: valACYclovir 500 MG TABLET PO SCH (08:31)
[2020-09-23] MEDS: carBAMazepine 200 MG TABLET PO SCH ×2 (08:31→20:59)
[2020-09-23] MEDS: FUROSEMIDE 40 MG TABLET PO SCH ×2 (08:32→17:20)
[2020-09-23] MEDS: FERROUS SULFATE 325 MG TABLET PO SCH (08:32)
[2020-09-23] MEDS: METOPROLOL TARTRATE 50 MG TABLET PO SCH ×2 (08:32→21:00)
[2020-09-23] MEDS: ASPIRIN EC 325 MG TABLET PO SCH (08:32)
[2020-09-23] MEDS: MAGNESIUM OXIDE 400 MG TABLET PO SCH (08:32)
[2020-09-23] MEDS: AMIODARONE 200 MG TABLET PO SCH ×2 (08:33→20:58)
[2020-09-23] MEDS: OMEGA 3 ACID ETHYL ESTERS 1 GM CAPSULE PO SCH ×2 (08:33→20:58)
[2020-09-23] MEDS: LOSARTAN 50 MG TABLET PO SCH (08:33)
[2020-09-23] MEDS: CETIRIZINE 10 MG TABLET PO SCH (08:33)
[2020-09-23] MEDS: CHOLECALCIFEROL 400 UNIT TABLET PO SCH (08:33)
[2020-09-23] MEDS: metFORMIN 500 MG TABLET PO SCH ×2 (08:34→17:20)
[2020-09-23] MEDS: INSULIN REGULAR 100 UNIT/ML SUBCUT SCH ×4 (08:34→20:44)
[2020-09-23] MEDS: CHLORHEXIDINE 0.12% ORAL RINSE 60 ML BOTTLE SWISH/SPIT SCH ×2 (08:35→21:00)
[2020-09-23] MEDS: DOCUSATE SODIUM 100 MG CAPSULE PO SCH (08:35)
[2020-09-23] MEDS: CALCIUM (CARBONATE) 500 MG TABLET PO SCH (09:56)
[2020-09-23] MEDS: OMEPRAZOLE ODT 20 MG TABLET PO SCH ×2 (09:57→21:00)
[2020-09-24] MEDS: ALBUTEROL/IPRATROPIUM 3 ML NEB RESP TX SCH ×5 (01:58→18:56)
[2020-09-24 05:07] LABS: Basophils % 0.2 % (0.0-0.8); Eosinophils # 0.1 10*3/uL (0.0-0.87); Eosinophils % 1.7 % (0.00-10.9); Hematocrit 31.6 VOL% (42.0-52.0); Hemoglobin 10.6 GM/DL (14.0-18.0); Immature Granulocytes % 0.9 %; Immature Granulocytes Absolute 0.07 #; Lymphocytes # 1.2 10*3/uL (1.4-4.0); Lymphocytes % 14.3 % (21.2-54.2); Mean Corpuscular HGB Conc 33.5 GM/DL (32-36); Mean Corpuscular Volume 95.2 FL (87-102); Mean Platelet Volume 9.9 FL (9.6-12.0); Monocytes % 7.6 % (1.7-12.7); Neutrophils % 75.3 % (38.7-73.9); Platelet Count 131 T/CUMM (130-400); Red Blood Count 3.32 MC/CUMM (3.8-5.5); Red Cell Distribution Width 13.4 % (9.3-17.3); White Blood Count 8.2 T/CUMM (4-12)
[2020-09-24 05:32] LABS: Alanine Aminotransferase 95 U/L (16-61); Albumin 2.9 G/DL (3.4-5.0); Alkaline Phosphatase 109 U/L (45-117); Aspartate Amino Transferase 68 U/L (0-37); Bilirubin,Indirect 0.6 MG/DL (0.0-1.0); Blood Urea Nitrogen 11 MG/DL (7-18); Calcium 7.9 MG/DL (8.5-10.1); Carbon Dioxide 32 MMOL/L (21-32); Estimated Glom Filtration Rate 153 ML/MIN; Glucose 127 MG/DL (74-106); Osmolality,Calculated 275.7 MOS/KG (273-304); Potassium 3.5 MMOL/L (3.5-5.1); Sodium 138 MMOL/L (136-145); Total Protein 6.4 G/DL (6.4-8.2)
[2020-09-24] MEDS: INSULIN REGULAR 100 UNIT/ML SUBCUT SCH ×4 (08:12→21:29)
[2020-09-24] MEDS: CHLORHEXIDINE 0.12% ORAL RINSE 60 ML BOTTLE SWISH/SPIT SCH ×2 (08:52→21:08)
[2020-09-24] MEDS: valACYclovir 500 MG TABLET PO SCH (08:52)
[2020-09-24] MEDS: CHOLECALCIFEROL 400 UNIT TABLET PO SCH (08:52)
[2020-09-24] MEDS: clonazePAM 0.5 MG TABLET PO SCH ×2 (08:53→21:08)
[2020-09-24] MEDS: POTASSIUM CHLORIDE 20 MEQ TABLET PO PRN ×2 (08:53→16:49)
[2020-09-24] MEDS: carBAMazepine 200 MG TABLET PO SCH ×2 (08:53→21:08)
[2020-09-24] MEDS: METOPROLOL TARTRATE 50 MG TABLET PO SCH ×2 (08:54→21:08)
[2020-09-24] MEDS: DOCUSATE SODIUM 100 MG CAPSULE PO SCH (08:54)
[2020-09-24] MEDS: OMEPRAZOLE ODT 20 MG TABLET PO SCH ×2 (08:54→21:08)
[2020-09-24] MEDS: FERROUS SULFATE 325 MG TABLET PO SCH (08:54)
[2020-09-24] MEDS: CALCIUM (CARBONATE) 500 MG TABLET PO SCH (08:54)
[2020-09-24] MEDS: AMIODARONE 200 MG TABLET PO SCH ×2 (08:54→21:07)
[2020-09-24] MEDS: CETIRIZINE 10 MG TABLET PO SCH (08:55)
[2020-09-24] MEDS: LOSARTAN 50 MG TABLET PO SCH (08:55)
[2020-09-24] MEDS: OMEGA 3 ACID ETHYL ESTERS 1 GM CAPSULE PO SCH ×2 (08:55→21:08)
[2020-09-24] MEDS: FUROSEMIDE 40 MG TABLET PO SCH ×2 (08:55→16:49)
[2020-09-24] MEDS: MAGNESIUM OXIDE 400 MG TABLET PO SCH (08:56)
[2020-09-24] MEDS: TAMSULOSIN 0.4 MG CAPSULE PO SCH (08:56)
[2020-09-24] MEDS: metFORMIN 500 MG TABLET PO SCH ×2 (08:56→16:49)
[2020-09-24] MEDS: ASPIRIN EC 325 MG TABLET PO SCH (08:56)
[2020-09-25] MEDS: ALBUTEROL/IPRATROPIUM 3 ML NEB RESP TX SCH ×4 (00:30→20:34)
[2020-09-25 04:30] LABS: Basophils % 0.3 % (0.0-0.8); Eosinophils # 0.2 10*3/uL (0.0-0.87); Hematocrit 30.3 VOL% (42.0-52.0); Hemoglobin 10.3 GM/DL (14.0-18.0); Immature Granulocytes % 0.8 %; Immature Granulocytes Absolute 0.06 #; Lymphocytes # 1.1 10*3/uL (1.4-4.0); Lymphocytes % 15.1 % (21.2-54.2); Mean Corpuscular Volume 94.4 FL (87-102); Mean Platelet Volume 9.7 FL (9.6-12.0); Monocytes % 8.4 % (1.7-12.7); Neutrophils % 73.4 % (38.7-73.9); Platelet Count 115 T/CUMM (130-400); Red Blood Count 3.21 MC/CUMM (3.8-5.5); Red Cell Distribution Width 13.4 % (9.3-17.3); White Blood Count 7.4 T/CUMM (4-12)
[2020-09-25 04:47] LABS: Calcium 7.7 MG/DL (8.5-10.1); Osmolality,Calculated 271.8 MOS/KG (273-304); Potassium 3.3 MMOL/L (3.5-5.1)
[2020-09-25] MEDS: INSULIN REGULAR 100 UNIT/ML SUBCUT SCH ×4 (07:54→21:05)
[2020-09-25] MEDS ORDERED: MAGNESIUM SULF RIDER 2 GM/50 ML PREMIX IV ONE (07:55)
[2020-09-25] MEDS: metFORMIN 500 MG TABLET PO SCH ×2 (09:32→16:14)
[2020-09-25] MEDS: OMEGA 3 ACID ETHYL ESTERS 1 GM CAPSULE PO SCH ×2 (09:33→21:05)
[2020-09-25] MEDS: AMIODARONE 200 MG TABLET PO SCH ×2 (09:33→21:04)
[2020-09-25] MEDS: valACYclovir 500 MG TABLET PO SCH (09:33)
[2020-09-25] MEDS: carBAMazepine 200 MG TABLET PO SCH ×2 (09:34→21:03)
[2020-09-25] MEDS: ASPIRIN EC 325 MG TABLET PO SCH (09:34)
[2020-09-25] MEDS: POTASSIUM CHLORIDE 20 MEQ TABLET PO SCH (09:35)
[2020-09-25] MEDS: FERROUS SULFATE 325 MG TABLET PO SCH (09:35)
[2020-09-25] MEDS: POTASSIUM CHLORIDE 20 MEQ TABLET PO PRN ×2 (09:35→11:04)
[2020-09-25] MEDS: FUROSEMIDE 40 MG TABLET PO SCH ×2 (09:36→16:14)
[2020-09-25] MEDS: CALCIUM (CARBONATE) 500 MG TABLET PO SCH (09:36)
[2020-09-25] MEDS: DOCUSATE SODIUM 100 MG CAPSULE PO SCH (09:36)
[2020-09-25] MEDS: TAMSULOSIN 0.4 MG CAPSULE PO SCH (09:36)
[2020-09-25] MEDS: CHOLECALCIFEROL 400 UNIT TABLET PO SCH (09:36)
[2020-09-25] MEDS: MAGNESIUM OXIDE 400 MG TABLET PO SCH (09:37)
[2020-09-25] MEDS: CETIRIZINE 10 MG TABLET PO SCH (09:37)
[2020-09-25] MEDS: clonazePAM 0.5 MG TABLET PO SCH ×2 (09:37→21:04)
[2020-09-25] MEDS: METOPROLOL TARTRATE 50 MG TABLET PO SCH ×2 (09:37→21:04)
[2020-09-25] MEDS: LOSARTAN 50 MG TABLET PO SCH (09:37)
[2020-09-25] MEDS: CHLORHEXIDINE 0.12% ORAL RINSE 60 ML BOTTLE SWISH/SPIT SCH ×2 (09:41→21:05)
[2020-09-25] MEDS: OMEPRAZOLE ODT 20 MG TABLET PO SCH ×2 (09:46→22:11)
[2020-09-26] MEDS: ALBUTEROL/IPRATROPIUM 3 ML NEB RESP TX SCH ×3 (04:00→12:26)
[2020-09-26 05:40] LABS: Basophils % 0.1 % (0.0-0.8); Eosinophils # 0.1 10*3/uL (0.0-0.87); Eosinophils % 1.7 % (0.00-10.9); Hematocrit 30.8 VOL% (42.0-52.0); Hemoglobin 10.5 GM/DL (14.0-18.0); Immature Granulocytes % 1.2 %; Immature Granulocytes Absolute 0.09 #; Lymphocytes # 1.1 10*3/uL (1.4-4.0); Lymphocytes % 14.4 % (21.2-54.2); Mean Corpuscular HGB Conc 34.1 GM/DL (32-36); Mean Corpuscular Volume 95.1 FL (87-102); Mean Platelet Volume 9.7 FL (9.6-12.0); Monocytes % 7.3 % (1.7-12.7); Neutrophils % 75.3 % (38.7-73.9); Platelet Count 123 T/CUMM (130-400); Red Blood Count 3.24 MC/CUMM (3.8-5.5); Red Cell Distribution Width 13.6 % (9.3-17.3); White Blood Count 7.5 T/CUMM (4-12)
[2020-09-26 06:02] LABS: Alanine Aminotransferase 82 U/L (16-61); Albumin 2.9 G/DL (3.4-5.0); Alkaline Phosphatase 115 U/L (45-117); Aspartate Amino Transferase 48 U/L (0-37); Bilirubin,Indirect 0.7 MG/DL (0.0-1.0); Blood Urea Nitrogen 6 MG/DL (7-18); Carbon Dioxide 30 MMOL/L (21-32); Estimated Glom Filtration Rate 187 ML/MIN; Glucose 113 MG/DL (74-106); Potassium 3.5 MMOL/L (3.5-5.1); Sodium 136 MMOL/L (136-145); Total Protein 6.5 G/DL (6.4-8.2)
[2020-09-26] MEDS: valACYclovir 500 MG TABLET PO SCH (08:51)
[2020-09-26] MEDS: CHOLECALCIFEROL 400 UNIT TABLET PO SCH (08:51)
[2020-09-26] MEDS: MAGNESIUM OXIDE 400 MG TABLET PO SCH (08:51)
[2020-09-26] MEDS: clonazePAM 0.5 MG TABLET PO SCH (08:52)
[2020-09-26] MEDS: CALCIUM (CARBONATE) 500 MG TABLET PO SCH (08:52)
[2020-09-26] MEDS: carBAMazepine 200 MG TABLET PO SCH (08:52)
[2020-09-26] MEDS: OMEPRAZOLE ODT 20 MG TABLET PO SCH (08:52)
[2020-09-26] MEDS: TAMSULOSIN 0.4 MG CAPSULE PO SCH (08:52)
[2020-09-26] MEDS: DOCUSATE SODIUM 100 MG CAPSULE PO SCH (08:52)
[2020-09-26] MEDS: METOPROLOL TARTRATE 50 MG TABLET PO SCH (08:53)
[2020-09-26] MEDS: LOSARTAN 50 MG TABLET PO SCH (08:53)
[2020-09-26] MEDS: AMIODARONE 200 MG TABLET PO SCH (08:53)
[2020-09-26] MEDS: OMEGA 3 ACID ETHYL ESTERS 1 GM CAPSULE PO SCH (08:53)
[2020-09-26] MEDS: metFORMIN 500 MG TABLET PO SCH (08:53)
[2020-09-26] MEDS: CETIRIZINE 10 MG TABLET PO SCH (08:53)
[2020-09-26] MEDS: FERROUS SULFATE 325 MG TABLET PO SCH (08:53)
[2020-09-26] MEDS: FUROSEMIDE 40 MG TABLET PO SCH (08:53)
[2020-09-26] MEDS: POTASSIUM CHLORIDE 20 MEQ TABLET PO SCH (08:53)
[2020-09-26] MEDS: ASPIRIN EC 325 MG TABLET PO SCH (08:53)
[2020-09-26] MEDS: INSULIN REGULAR 100 UNIT/ML SUBCUT SCH ×2 (08:54→13:02)
[2020-09-26] MEDS: CHLORHEXIDINE 0.12% ORAL RINSE 60 ML BOTTLE SWISH/SPIT SCH (08:54)
[2020-09-26 11:37] VITALS: BP 117/69
== END 2020-09-26 13:29 | disposition home health service (06) | DRG 235 ==
LOC: N.TELES 10:40 → N.CVR 09-19 10:52 → N.ICU 09-20 07:04 → N.TELES 09-24 01:02

== ENCOUNTER 2020-10-18 12:12 | Inpatient (IN) ==
[2020-10-18] MEDS ORDERED: FUROSEMIDE 40 MG/4 ML VIAL IV STA (12:42)
[2020-10-18 12:56] LABS: Basophils % 0.1 % (0.0-0.8); Eosinophils % 0.6 % (0.00-10.9); Hematocrit 30.8 VOL% (42.0-52.0); Immature Granulocytes % 0.6 %; Immature Granulocytes Absolute 0.04 #; Lymphocytes # 0.8 10*3/uL (1.4-4.0); Lymphocytes % 11.9 % (21.2-54.2); Mean Corpuscular HGB Conc 32.5 GM/DL (32-36); Mean Corpuscular Volume 93.6 FL (87-102); Mean Platelet Volume 9.1 FL (9.6-12.0); Monocytes % 7.7 % (1.7-12.7); Neutrophils % 79.1 % (38.7-73.9); Platelet Count 162 T/CUMM (130-400); Red Blood Count 3.29 MC/CUMM (3.8-5.5); Red Cell Distribution Width 13.3 % (9.3-17.3); White Blood Count 6.8 T/CUMM (4-12)
[2020-10-18 13:11] LABS: Alanine Aminotransferase 34 U/L (16-61); Albumin 3.2 G/DL (3.4-5.0); Alkaline Phosphatase 159 U/L (45-117); Aspartate Amino Transferase 32 U/L (0-37); Blood Urea Nitrogen 7 MG/DL (7-18); Calcium 7.8 MG/DL (8.5-10.1); Carbon Dioxide 34 MMOL/L (21-32); Estimated Glom Filtration Rate 182 ML/MIN; Glucose 103 MG/DL (74-106); Osmolality,Calculated 250.4 MOS/KG (273-304); Potassium 3.6 MMOL/L (3.5-5.1); Sodium 126 MMOL/L (136-145); Total Protein 6.5 G/DL (6.4-8.2)
[2020-10-18 13:16] LABS: INR 2.5; Partial Thromboplastin Time 33.8 SECS (23.9-33.8)
[2020-10-18 13:17] LABS: PT Patient Result 26.1 SECS (10.5-12.0)
[2020-10-18] MEDS ORDERED: MAGNESIUM SULF RIDER 2 GM/50 ML PREMIX IV PRN (15:57)
[2020-10-18] MEDS ORDERED: ONDANSETRON 4 MG/2 ML VIAL IV PRN (16:26)
[2020-10-18] MEDS ORDERED: ALBUTEROL/IPRATROPIUM 3 ML NEB RESP TX PRN (16:26)
[2020-10-18] MEDS ORDERED: hydrALAZINE 20 MG/1 ML VIAL IV PRN (16:26)
[2020-10-18] MEDS ORDERED: GLUCAGON 1 MG VIAL IM PRN (16:26)
[2020-10-18] MEDS ORDERED: CALCIUM CARBONATE CHEW 500 MG TABLET PO PRN (16:26)
[2020-10-18] MEDS ORDERED: DEXTROSE 50% 25 GM/50 ML VIAL IV PRN (16:26)
[2020-10-18] MEDS ORDERED: POTASSIUM CHLORIDE 20 MEQ TABLET PO PRN (16:36)
[2020-10-18] MEDS ORDERED: POTASSIUM CHLORIDE 20 MEQ TABLET PO ONE (16:37)
[2020-10-18] MEDS ORDERED: traZODone 50 MG TABLET PO PRN (17:03)
[2020-10-18] MEDS: INSULIN LISPRO 100 UNIT/ML SUBCUT SCH ×2 (17:56→20:43)
[2020-10-18] MEDS: TAMSULOSIN 0.4 MG CAPSULE PO SCH (18:33)
[2020-10-18] MEDS: carvediloL 6.25 MG TABLET PO SCH (20:43)
[2020-10-18] MEDS: clonazePAM 0.5 MG TABLET PO SCH (20:43)
[2020-10-18] MEDS: LUBIPROSTONE 24 MCG CAPSULE PO SCH (20:43)
[2020-10-18] MEDS: risperiDONE 1 MG TABLET PO SCH (20:44)
[2020-10-18] MEDS: carBAMazepine 200 MG TABLET PO SCH (20:44)
[2020-10-18] MEDS: ATORVASTATIN 40 MG TABLET PO SCH (20:44)
[2020-10-18] MEDS: ASCORBIC ACID 500 MG TABLET PO SCH (20:44)
[2020-10-18] MEDS: CHOLECALCIFEROL 400 UNIT TABLET PO SCH (20:44)
[2020-10-18] MEDS: PANTOPRAZOLE 40 MG TABLET PO SCH (20:44)
[2020-10-19 05:20] LABS: INR 2.3
[2020-10-19 05:24] LABS: PT Patient Result 24.5 SECS (10.5-12.0)
[2020-10-19 06:53] LABS: Basophils % 0.1 % (0.0-0.8); Eosinophils % 0.6 % (0.00-10.9); Hematocrit 26.8 VOL% (42.0-52.0); Hemoglobin 8.8 GM/DL (14.0-18.0); Immature Granulocytes % 0.4 %; Immature Granulocytes Absolute 0.03 #; Lymphocytes # 0.8 10*3/uL (1.4-4.0); Lymphocytes % 11.8 % (21.2-54.2); Mean Corpuscular HGB Conc 32.8 GM/DL (32-36); Mean Corpuscular Volume 94.4 FL (87-102); Mean Platelet Volume 8.9 FL (9.6-12.0); Monocytes % 8.8 % (1.7-12.7); Neutrophils % 78.3 % (38.7-73.9); Platelet Count 152 T/CUMM (130-400); Red Blood Count 2.84 MC/CUMM (3.8-5.5); Red Cell Distribution Width 13.4 % (9.3-17.3); White Blood Count 6.8 T/CUMM (4-12)
[2020-10-19 07:36] LABS: Albumin 2.6 G/DL (3.4-5.0); Bilirubin,Total 0.5 MG/DL (0.20-1.00); Calcium 7.5 MG/DL (8.5-10.1); Osmolality,Calculated 255.1 MOS/KG (273-304); Potassium 3.8 MMOL/L (3.5-5.1); Risk Ratio 1.76; Thyroid Stimulating Hormone 1.46 uIU/ml (0.358-3.74); Total Protein 5.9 G/DL (6.4-8.2); VLDL Cholesterol 12.8 MG/DL
[2020-10-19] MEDS: INSULIN LISPRO 100 UNIT/ML SUBCUT SCH ×4 (07:58→22:16)
[2020-10-19] MEDS: clonazePAM 0.5 MG TABLET PO SCH ×2 (08:47→22:10)
[2020-10-19] MEDS: MAGNESIUM OXIDE 400 MG TABLET PO SCH (08:48)
[2020-10-19] MEDS: risperiDONE 1 MG TABLET PO SCH ×2 (08:49→22:09)
[2020-10-19] MEDS: carBAMazepine 200 MG TABLET PO SCH ×3 (08:49→22:09)
[2020-10-19] MEDS: CHOLECALCIFEROL 400 UNIT TABLET PO SCH ×2 (08:49→22:16)
[2020-10-19] MEDS: ASPIRIN EC 81 MG TABLET PO SCH (08:49)
[2020-10-19] MEDS: CALCIUM (CARBONATE) 500 MG TABLET PO SCH (08:50)
[2020-10-19] MEDS: PANTOPRAZOLE 40 MG TABLET PO SCH ×2 (08:50→22:11)
[2020-10-19] MEDS: metFORMIN 500 MG TABLET PO SCH ×2 (08:51→22:07)
[2020-10-19] MEDS: carvediloL 6.25 MG TABLET PO SCH ×2 (08:51→22:10)
[2020-10-19] MEDS: ASCORBIC ACID 500 MG TABLET PO SCH ×2 (08:51→22:09)
[2020-10-19] MEDS: CETIRIZINE 10 MG TABLET PO SCH (08:51)
[2020-10-19] MEDS: methylPREDNISolone SOD SUC 125 MG/2 ML VIAL IV SCH ×3 (08:53→22:16)
[2020-10-19] MEDS: FUROSEMIDE 40 MG/4 ML VIAL IV SCH ×3 (08:57→15:17)
[2020-10-19] MEDS ORDERED: APIXABAN 5 MG TABLET PO SCH (09:00)
[2020-10-19] MEDS ORDERED: CLOPIDOGREL 75 MG TABLET PO SCH (09:00)
[2020-10-19] MEDS ORDERED: FUROSEMIDE 20 MG/2 ML VIAL IV SCH (09:00)
[2020-10-19] MEDS: LUBIPROSTONE 24 MCG CAPSULE PO SCH ×2 (10:25→22:10)
[2020-10-19] MEDS: OMEGA 3 ACID ETHYL ESTERS 1 GM CAPSULE PO SCH (10:25)
[2020-10-19] MEDS ORDERED: SODIUM CHLORIDE 0.9% 1,000 ML IV PRN (17:48)
[2020-10-19] MEDS ORDERED: PHYTONADIONE 10 MG/1 ML AMP SUBCUT ONE (17:51)
[2020-10-19 18:36] LABS: % Iron Saturation 8.3 % (18-50)
[2020-10-19 19:19] LABS: Hepatitis B Core IgM Quant < 0.05 Index; Hepatitis B Surface Ag Quant < 0.10 Index; Hepatitis B Surface Ag Result Non-Reactive (NonReactive); Hepatitis C Virus Ab Quant 0.04 Index; Hepatitis C Virus Ab Result Non-Reactive (NonReactive)
[2020-10-19] MEDS: TAMSULOSIN 0.4 MG CAPSULE PO SCH (22:10)
[2020-10-19] MEDS: ATORVASTATIN 40 MG TABLET PO SCH (22:10)
[2020-10-20] MEDS ORDERED: SODIUM CHLORIDE 0.9% 1,000 ML IV ONE (00:23)
[2020-10-20] MEDS: methylPREDNISolone SOD SUC 125 MG/2 ML VIAL IV SCH ×3 (06:07→21:47)
[2020-10-20 06:10] LABS: Hemoglobin 8.6 GM/DL (14.0-18.0); Immature Granulocytes % 0.6 %; Immature Granulocytes Absolute 0.04 #; Lymphocytes # 0.9 10*3/uL (1.4-4.0); Lymphocytes % 13.4 % (21.2-54.2); Mean Corpuscular HGB Conc 33.1 GM/DL (32-36); Mean Corpuscular Volume 94.9 FL (87-102); Mean Platelet Volume 9.1 FL (9.6-12.0); Monocytes % 6.7 % (1.7-12.7); Neutrophils % 79.3 % (38.7-73.9); Platelet Count 159 T/CUMM (130-400); Red Blood Count 2.74 MC/CUMM (3.8-5.5); Red Cell Distribution Width 13.3 % (9.3-17.3)
[2020-10-20 06:19] LABS: INR 1.4; PT Patient Result 15.1 SECS (10.5-12.0)
[2020-10-20] MEDS ORDERED: SODIUM CHLORIDE 0.9% 1,000 ML IV PRN (06:29)
[2020-10-20] MEDS ORDERED: FUROSEMIDE 20 MG/2 ML VIAL IV PRN (06:30)
[2020-10-20 06:47] LABS: Osmolality,Calculated 253.2 MOS/KG (273-304); Potassium 3.7 MMOL/L (3.5-5.1)
[2020-10-20 07:19] LABS: INR 1.4; PT Patient Result 15.2 SECS (10.5-12.0)
[2020-10-20] MEDS: FUROSEMIDE 40 MG/4 ML VIAL IV SCH ×2 (09:30→15:12)
[2020-10-20 09:55] LABS: Total Protein,Peritoneal Fluid < 1.0 G/DL
[2020-10-20] MEDS: INSULIN LISPRO 100 UNIT/ML SUBCUT SCH ×4 (09:55→20:37)
[2020-10-20] MEDS: metFORMIN 500 MG TABLET PO SCH ×2 (09:55→16:40)
[2020-10-20 09:56] LABS: Neutrophils,Peritoneal Fluid 6 %; RBC,Peritoneal Fluid 320 T/CUMM
[2020-10-20] MEDS: carvediloL 6.25 MG TABLET PO SCH ×2 (09:56→21:47)
[2020-10-20] MEDS: OMEGA 3 ACID ETHYL ESTERS 1 GM CAPSULE PO SCH (09:56)
[2020-10-20] MEDS: MAGNESIUM OXIDE 400 MG TABLET PO SCH (09:56)
[2020-10-20] MEDS: LUBIPROSTONE 24 MCG CAPSULE PO SCH ×2 (09:56→21:47)
[2020-10-20] MEDS: CALCIUM (CARBONATE) 500 MG TABLET PO SCH (09:56)
[2020-10-20] MEDS: ASPIRIN EC 81 MG TABLET PO SCH (09:56)
[2020-10-20] MEDS: clonazePAM 0.5 MG TABLET PO SCH ×2 (09:56→21:45)
[2020-10-20] MEDS: CHOLECALCIFEROL 400 UNIT TABLET PO SCH ×2 (09:57→21:45)
[2020-10-20] MEDS: ASCORBIC ACID 500 MG TABLET PO SCH ×2 (09:57→21:47)
[2020-10-20] MEDS: CETIRIZINE 10 MG TABLET PO SCH (09:57)
[2020-10-20] MEDS: PANTOPRAZOLE 40 MG TABLET PO SCH ×2 (09:57→21:47)
[2020-10-20] MEDS: risperiDONE 1 MG TABLET PO SCH ×2 (09:57→21:47)
[2020-10-20] MEDS: carBAMazepine 200 MG TABLET PO SCH ×3 (09:57→21:46)
[2020-10-20] MEDS: TAMSULOSIN 0.4 MG CAPSULE PO SCH (18:07)
[2020-10-20] MEDS: ATORVASTATIN 40 MG TABLET PO SCH (21:46)
[2020-10-21 05:14] LABS: Hematocrit 26.6 VOL% (42.0-52.0); Hemoglobin 8.5 GM/DL (14.0-18.0); Immature Granulocytes % 0.9 %; Immature Granulocytes Absolute 0.05 #; Lymphocytes # 0.7 10*3/uL (1.4-4.0); Lymphocytes % 12.7 % (21.2-54.2); Mean Platelet Volume 9.1 FL (9.6-12.0); Monocytes % 6.3 % (1.7-12.7); Neutrophils % 80.1 % (38.7-73.9); Platelet Count 132 T/CUMM (130-400); Red Cell Distribution Width 13.4 % (9.3-17.3); White Blood Count 5.5 T/CUMM (4-12)
[2020-10-21 05:25] LABS: INR 1.1; PT Patient Result 12.6 SECS (10.5-12.0)
[2020-10-21 05:39] LABS: Calcium 7.8 MG/DL (8.5-10.1); Osmolality,Calculated 262.7 MOS/KG (273-304); Potassium 4.1 MMOL/L (3.5-5.1)
[2020-10-21] MEDS ORDERED: LIDOCAINE 100 MG/5 ML SYRINGE ONE (07:44)
[2020-10-21] MEDS ORDERED: propofoL 200 MG/20 ML VIAL IV ONE (07:44)
[2020-10-21] MEDS ORDERED: ETOMIDATE 20 MG/10 ML VIAL IV ONE (07:44)
[2020-10-21] MEDS: LACTATED RINGERS 1,000 ML IV SCH (08:27)
[2020-10-21] MEDS: LUBIPROSTONE 24 MCG CAPSULE PO SCH ×2 (09:39→20:12)
[2020-10-21] MEDS: PANTOPRAZOLE 40 MG TABLET PO SCH ×2 (09:39→20:12)
[2020-10-21] MEDS: ASCORBIC ACID 500 MG TABLET PO SCH ×2 (09:40→20:11)
[2020-10-21] MEDS: risperiDONE 1 MG TABLET PO SCH ×2 (09:40→20:10)
[2020-10-21] MEDS: carBAMazepine 200 MG TABLET PO SCH ×3 (09:40→20:12)
[2020-10-21] MEDS: CALCIUM (CARBONATE) 500 MG TABLET PO SCH (09:40)
[2020-10-21] MEDS: ASPIRIN EC 81 MG TABLET PO SCH (09:40)
[2020-10-21] MEDS: MAGNESIUM OXIDE 400 MG TABLET PO SCH (09:41)
[2020-10-21] MEDS: carvediloL 6.25 MG TABLET PO SCH (09:41)
[2020-10-21] MEDS: CETIRIZINE 10 MG TABLET PO SCH (09:41)
[2020-10-21] MEDS: clonazePAM 0.5 MG TABLET PO SCH ×2 (09:41→20:12)
[2020-10-21] MEDS: metFORMIN 500 MG TABLET PO SCH ×2 (09:41→16:34)
[2020-10-21] MEDS: INSULIN LISPRO 100 UNIT/ML SUBCUT SCH ×4 (09:42→21:05)
[2020-10-21] MEDS: FUROSEMIDE 40 MG/4 ML VIAL IV SCH ×2 (09:46→17:00)
[2020-10-21] MEDS: methylPREDNISolone SOD SUC 125 MG/2 ML VIAL IV SCH ×2 (09:50→21:04)
[2020-10-21] MEDS: carvediloL 12.5 MG TABLET PO SCH ×2 (09:57→20:12)
[2020-10-21] MEDS: CHOLECALCIFEROL 400 UNIT TABLET PO SCH ×2 (09:58→20:11)
[2020-10-21] MEDS: OMEGA 3 ACID ETHYL ESTERS 1 GM CAPSULE PO SCH ×2 (10:12→11:04)
[2020-10-21] MEDS: ATORVASTATIN 40 MG TABLET PO SCH (20:11)
[2020-10-21] MEDS: TAMSULOSIN 0.4 MG CAPSULE PO SCH (20:12)
[2020-10-22 07:00] LABS: INR 1.1; PT Patient Result 11.8 SECS (10.5-12.0)
[2020-10-22] MEDS: INSULIN LISPRO 100 UNIT/ML SUBCUT SCH ×4 (07:58→20:25)
[2020-10-22] MEDS: LACTATED RINGERS 1,000 ML IV SCH (08:00)
[2020-10-22] MEDS: CHOLECALCIFEROL 400 UNIT TABLET PO SCH ×2 (08:57→20:27)
[2020-10-22] MEDS: ASPIRIN EC 81 MG TABLET PO SCH (08:57)
[2020-10-22] MEDS: OMEGA 3 ACID ETHYL ESTERS 1 GM CAPSULE PO SCH (08:58)
[2020-10-22] MEDS: metFORMIN 500 MG TABLET PO SCH ×2 (08:58→16:44)
[2020-10-22] MEDS: BISACODYL 5 MG TABLET PO PRN (08:58)
[2020-10-22] MEDS: carvediloL 12.5 MG TABLET PO SCH ×2 (08:58→20:26)
[2020-10-22] MEDS: ASCORBIC ACID 500 MG TABLET PO SCH ×2 (08:58→20:26)
[2020-10-22] MEDS: LUBIPROSTONE 24 MCG CAPSULE PO SCH ×2 (08:59→20:27)
[2020-10-22] MEDS: clonazePAM 0.5 MG TABLET PO SCH ×2 (09:00→20:27)
[2020-10-22] MEDS: PANTOPRAZOLE 40 MG TABLET PO SCH ×2 (09:00→20:27)
[2020-10-22] MEDS: CALCIUM (CARBONATE) 500 MG TABLET PO SCH (09:01)
[2020-10-22] MEDS: risperiDONE 1 MG TABLET PO SCH ×2 (09:01→20:26)
[2020-10-22] MEDS: MAGNESIUM OXIDE 400 MG TABLET PO SCH (09:01)
[2020-10-22] MEDS: carBAMazepine 200 MG TABLET PO SCH ×3 (09:02→20:27)
[2020-10-22] MEDS: CETIRIZINE 10 MG TABLET PO SCH (09:02)
[2020-10-22] MEDS: methylPREDNISolone SOD SUC 125 MG/2 ML VIAL IV SCH ×2 (09:04→20:26)
[2020-10-22] MEDS: FUROSEMIDE 40 MG/4 ML VIAL IV SCH ×2 (09:12→15:38)
[2020-10-22] MEDS ORDERED: ALBUTEROL/IPRATROPIUM 3 ML NEB RESP TX ONE (14:32)
[2020-10-22] MEDS: ALBUTEROL/IPRATROPIUM 3 ML NEB RESP TX SCH (14:35)
[2020-10-22] MEDS: metOLazone 5 MG TABLET PO SCH (15:35)
[2020-10-22] MEDS: TAMSULOSIN 0.4 MG CAPSULE PO SCH (19:24)
[2020-10-22] MEDS: ATORVASTATIN 40 MG TABLET PO SCH (20:27)
[2020-10-23] MEDS: ALBUTEROL/IPRATROPIUM 3 ML NEB RESP TX SCH ×5 (01:07→19:23)
[2020-10-23 05:09] LABS: Calcium 7.9 MG/DL (8.5-10.1); Hematocrit 28.8 VOL% (42.0-52.0); Hemoglobin 9.3 GM/DL (14.0-18.0); Immature Granulocytes % 0.6 %; Immature Granulocytes Absolute 0.04 #; Lymphocytes # 1.1 10*3/uL (1.4-4.0); Lymphocytes % 16.6 % (21.2-54.2); Mean Corpuscular HGB Conc 32.3 GM/DL (32-36); Mean Corpuscular Volume 95.4 FL (87-102); Mean Platelet Volume 9.1 FL (9.6-12.0); Neutrophils % 70.8 % (38.7-73.9); Osmolality,Calculated 261.8 MOS/KG (273-304); Platelet Count 136 T/CUMM (130-400); Potassium 3.8 MMOL/L (3.5-5.1); Red Blood Count 3.02 MC/CUMM (3.8-5.5); Red Cell Distribution Width 13.2 % (9.3-17.3); White Blood Count 6.8 T/CUMM (4-12)
[2020-10-23] MEDS: INSULIN LISPRO 100 UNIT/ML SUBCUT SCH ×4 (08:38→21:24)
[2020-10-23] MEDS: ASCORBIC ACID 500 MG TABLET PO SCH ×2 (08:55→22:09)
[2020-10-23] MEDS: ASPIRIN EC 81 MG TABLET PO SCH (08:55)
[2020-10-23] MEDS: carvediloL 12.5 MG TABLET PO SCH (08:55)
[2020-10-23] MEDS: LUBIPROSTONE 24 MCG CAPSULE PO SCH ×2 (08:55→22:10)
[2020-10-23] MEDS: PANTOPRAZOLE 40 MG TABLET PO SCH ×2 (08:55→22:08)
[2020-10-23] MEDS: risperiDONE 1 MG TABLET PO SCH ×2 (08:55→22:09)
[2020-10-23] MEDS: CALCIUM (CARBONATE) 500 MG TABLET PO SCH (08:55)
[2020-10-23] MEDS: OMEGA 3 ACID ETHYL ESTERS 1 GM CAPSULE PO SCH (08:55)
[2020-10-23] MEDS: metOLazone 5 MG TABLET PO SCH (08:56)
[2020-10-23] MEDS: MAGNESIUM OXIDE 400 MG TABLET PO SCH (08:56)
[2020-10-23] MEDS: CHOLECALCIFEROL 400 UNIT TABLET PO SCH ×2 (08:56→22:10)
[2020-10-23] MEDS: metFORMIN 500 MG TABLET PO SCH ×2 (08:56→16:42)
[2020-10-23] MEDS: FUROSEMIDE 40 MG/4 ML VIAL IV SCH ×2 (08:56→16:41)
[2020-10-23] MEDS: clonazePAM 0.5 MG TABLET PO SCH ×2 (08:56→22:10)
[2020-10-23] MEDS: CETIRIZINE 10 MG TABLET PO SCH (08:56)
[2020-10-23] MEDS: carBAMazepine 200 MG TABLET PO SCH ×3 (08:57→22:10)
[2020-10-23] MEDS ORDERED: POTASSIUM CHLORIDE 20 MEQ TABLET PO ONE (08:57)
[2020-10-23] MEDS: methylPREDNISolone SOD SUC 125 MG/2 ML VIAL IV SCH ×3 (08:57→23:09)
[2020-10-23] MEDS: METOPROLOL TARTRATE 25 MG TABLET PO SCH ×2 (09:04→22:09)
[2020-10-23 12:06] LABS: Antinuclear Ab, S 0.4 U
[2020-10-23] MEDS: cefTRIAXone 2,000 MG in SODIUM CHLORIDE 0.9% 100 ML IV SCH (16:42)
[2020-10-23] MEDS: TAMSULOSIN 0.4 MG CAPSULE PO SCH (22:09)
[2020-10-23] MEDS: ATORVASTATIN 40 MG TABLET PO SCH (22:10)
[2020-10-24] MEDS: ALBUTEROL/IPRATROPIUM 3 ML NEB RESP TX SCH ×4 (00:45→19:42)
[2020-10-24 05:51] LABS: Hematocrit 27.9 VOL% (42.0-52.0); Hemoglobin 9.3 GM/DL (14.0-18.0); Immature Granulocytes % 0.3 %; Immature Granulocytes Absolute 0.02 #; Lymphocytes # 0.8 10*3/uL (1.4-4.0); Lymphocytes % 12.9 % (21.2-54.2); Mean Corpuscular HGB Conc 33.3 GM/DL (32-36); Mean Corpuscular Volume 93.3 FL (87-102); Mean Platelet Volume 9.5 FL (9.6-12.0); Monocytes % 6.4 % (1.7-12.7); Neutrophils % 80.4 % (38.7-73.9); Platelet Count 149 T/CUMM (130-400); Red Blood Count 2.99 MC/CUMM (3.8-5.5); Red Cell Distribution Width 13.2 % (9.3-17.3); White Blood Count 6.3 T/CUMM (4-12)
[2020-10-24 06:37] LABS: Calcium 8.4 MG/DL (8.5-10.1); Osmolality,Calculated 260.9 MOS/KG (273-304); Potassium 3.4 MMOL/L (3.5-5.1)
[2020-10-24] MEDS: INSULIN LISPRO 100 UNIT/ML SUBCUT SCH ×4 (08:18→21:19)
[2020-10-24] MEDS: FUROSEMIDE 40 MG/4 ML VIAL IV SCH ×2 (10:35→17:54)
[2020-10-24] MEDS: methylPREDNISolone SOD SUC 125 MG/2 ML VIAL IV SCH ×2 (10:36→21:14)
[2020-10-24] MEDS: MAGNESIUM OXIDE 400 MG TABLET PO SCH (10:37)
[2020-10-24] MEDS: OMEGA 3 ACID ETHYL ESTERS 1 GM CAPSULE PO SCH (10:37)
[2020-10-24] MEDS: ASCORBIC ACID 500 MG TABLET PO SCH ×2 (10:37→21:07)
[2020-10-24] MEDS: metFORMIN 500 MG TABLET PO SCH ×2 (10:37→16:32)
[2020-10-24] MEDS: CETIRIZINE 10 MG TABLET PO SCH (10:38)
[2020-10-24] MEDS: PANTOPRAZOLE 40 MG TABLET PO SCH ×2 (10:38→21:09)
[2020-10-24] MEDS: CALCIUM (CARBONATE) 500 MG TABLET PO SCH (10:38)
[2020-10-24] MEDS: ASPIRIN EC 81 MG TABLET PO SCH (10:38)
[2020-10-24] MEDS: metOLazone 5 MG TABLET PO SCH (10:39)
[2020-10-24] MEDS: CHOLECALCIFEROL 400 UNIT TABLET PO SCH ×2 (10:39→21:08)
[2020-10-24] MEDS: LUBIPROSTONE 24 MCG CAPSULE PO SCH ×2 (10:39→21:07)
[2020-10-24] MEDS: risperiDONE 1 MG TABLET PO SCH ×2 (10:40→21:08)
[2020-10-24] MEDS: METOPROLOL TARTRATE 25 MG TABLET PO SCH ×2 (10:40→21:08)
[2020-10-24] MEDS: clonazePAM 0.5 MG TABLET PO SCH ×2 (10:40→21:09)
[2020-10-24] MEDS: POTASSIUM CHLORIDE 20 MEQ TABLET PO SCH (14:06)
[2020-10-24 16:06] LABS: Alpha-1-Antitrypsin, Serum 201 mg/dL (100 - 190)
[2020-10-24] MEDS: cefTRIAXone 2,000 MG in SODIUM CHLORIDE 0.9% 100 ML IV SCH (17:55)
[2020-10-24] MEDS: ATORVASTATIN 40 MG TABLET PO SCH (21:07)
[2020-10-24] MEDS: TAMSULOSIN 0.4 MG CAPSULE PO SCH (21:08)
[2020-10-24] MEDS: carBAMazepine 200 MG TABLET PO SCH (21:08)
[2020-10-25] MEDS: ALBUTEROL/IPRATROPIUM 3 ML NEB RESP TX SCH ×4 (00:52→19:35)
[2020-10-25 05:35] LABS: Hematocrit 28.5 VOL% (42.0-52.0); Hemoglobin 9.3 GM/DL (14.0-18.0); Immature Granulocytes % 0.4 %; Immature Granulocytes Absolute 0.03 #; Lymphocytes # 1.1 10*3/uL (1.4-4.0); Lymphocytes % 16.1 % (21.2-54.2); Mean Corpuscular HGB Conc 32.6 GM/DL (32-36); Mean Corpuscular Volume 92.8 FL (87-102); Mean Platelet Volume 9.2 FL (9.6-12.0); Monocytes % 7.7 % (1.7-12.7); Neutrophils % 75.8 % (38.7-73.9); Platelet Count 151 T/CUMM (130-400); Red Blood Count 3.07 MC/CUMM (3.8-5.5); Red Cell Distribution Width 13.1 % (9.3-17.3); White Blood Count 6.8 T/CUMM (4-12)
[2020-10-25 06:01] LABS: Calcium 8.5 MG/DL (8.5-10.1); Osmolality,Calculated 255.4 MOS/KG (273-304)
[2020-10-25] MEDS: CHOLECALCIFEROL 400 UNIT TABLET PO SCH ×2 (08:11→20:47)
[2020-10-25] MEDS: LUBIPROSTONE 24 MCG CAPSULE PO SCH ×2 (08:12→20:47)
[2020-10-25] MEDS: POTASSIUM CHLORIDE 20 MEQ TABLET PO SCH (08:12)
[2020-10-25] MEDS: risperiDONE 1 MG TABLET PO SCH ×2 (08:12→20:48)
[2020-10-25] MEDS: carBAMazepine 200 MG TABLET PO SCH ×2 (08:12→20:48)
[2020-10-25] MEDS: ASCORBIC ACID 500 MG TABLET PO SCH ×2 (08:12→20:47)
[2020-10-25] MEDS: metOLazone 5 MG TABLET PO SCH (08:13)
[2020-10-25] MEDS: CETIRIZINE 10 MG TABLET PO SCH (08:13)
[2020-10-25] MEDS: metFORMIN 500 MG TABLET PO SCH ×2 (08:13→17:23)
[2020-10-25] MEDS: MAGNESIUM OXIDE 400 MG TABLET PO SCH (08:13)
[2020-10-25] MEDS: OMEGA 3 ACID ETHYL ESTERS 1 GM CAPSULE PO SCH (08:13)
[2020-10-25] MEDS: ASPIRIN EC 81 MG TABLET PO SCH (08:13)
[2020-10-25] MEDS: PANTOPRAZOLE 40 MG TABLET PO SCH ×2 (08:14→20:48)
[2020-10-25] MEDS: METOPROLOL TARTRATE 25 MG TABLET PO SCH ×2 (08:14→20:48)
[2020-10-25] MEDS: clonazePAM 0.5 MG TABLET PO SCH ×2 (08:14→20:49)
[2020-10-25] MEDS: methylPREDNISolone SOD SUC 125 MG/2 ML VIAL IV SCH (08:15)
[2020-10-25] MEDS: INSULIN LISPRO 100 UNIT/ML SUBCUT SCH ×4 (08:19→20:52)
[2020-10-25] MEDS ORDERED: POTASSIUM CHLORIDE 20 MEQ TABLET PO ONE (08:29)
[2020-10-25] MEDS: CALCIUM (CARBONATE) 500 MG TABLET PO SCH (08:35)
[2020-10-25] MEDS ORDERED: DIAZEPAM 5 MG TABLET PO ONE (08:58)
[2020-10-25] MEDS: methylPREDNISolone SOD SUC 40 MG/1 ML VIAL IV SCH ×2 (08:59→20:52)
[2020-10-25] MEDS: FUROSEMIDE 40 MG/4 ML VIAL IV SCH (09:00)
[2020-10-25] MEDS ORDERED: TISSUE ADHESIVE 1 EACH APPLICATOR TOP ONE (15:20)
[2020-10-25] MEDS: cefTRIAXone 2,000 MG in SODIUM CHLORIDE 0.9% 100 ML IV SCH (16:59)
[2020-10-25] MEDS: TAMSULOSIN 0.4 MG CAPSULE PO SCH (18:13)
[2020-10-25] MEDS: ATORVASTATIN 40 MG TABLET PO SCH (20:48)
[2020-10-26] MEDS: ALBUTEROL/IPRATROPIUM 3 ML NEB RESP TX SCH ×4 (00:04→19:00)
[2020-10-26 03:09] LABS: Eosinophils % 0.2 % (0.00-10.9); Hematocrit 28.3 VOL% (42.0-52.0); Hemoglobin 9.3 GM/DL (14.0-18.0); Immature Granulocytes % 0.7 %; Immature Granulocytes Absolute 0.04 #; Lymphocytes # 0.7 10*3/uL (1.4-4.0); Lymphocytes % 12.2 % (21.2-54.2); Mean Corpuscular HGB Conc 32.9 GM/DL (32-36); Mean Corpuscular Volume 91.6 FL (87-102); Mean Platelet Volume 9.1 FL (9.6-12.0); Monocytes % 7.8 % (1.7-12.7); Neutrophils % 79.1 % (38.7-73.9); Platelet Count 128 T/CUMM (130-400); Red Blood Count 3.09 MC/CUMM (3.8-5.5); Red Cell Distribution Width 13.1 % (9.3-17.3); White Blood Count 5.9 T/CUMM (4-12)
[2020-10-26 03:29] LABS: Calcium 8.5 MG/DL (8.5-10.1); Osmolality,Calculated 254.4 MOS/KG (273-304); Potassium 3.3 MMOL/L (3.5-5.1)
[2020-10-26] MEDS ORDERED: POTASSIUM CHLORIDE 20 MEQ TABLET PO SCH (09:00)
[2020-10-26] MEDS: carBAMazepine 200 MG TABLET PO SCH ×2 (09:08→20:49)
[2020-10-26] MEDS: CHOLECALCIFEROL 400 UNIT TABLET PO SCH ×2 (09:09→20:48)
[2020-10-26] MEDS: OMEGA 3 ACID ETHYL ESTERS 1 GM CAPSULE PO SCH (09:09)
[2020-10-26] MEDS: ASPIRIN EC 81 MG TABLET PO SCH (09:09)
[2020-10-26] MEDS: LUBIPROSTONE 24 MCG CAPSULE PO SCH ×2 (09:10→20:49)
[2020-10-26] MEDS: risperiDONE 1 MG TABLET PO SCH ×2 (09:10→20:48)
[2020-10-26] MEDS: MAGNESIUM OXIDE 400 MG TABLET PO SCH (09:10)
[2020-10-26] MEDS: BISACODYL 5 MG TABLET PO PRN (09:11)
[2020-10-26] MEDS: PANTOPRAZOLE 40 MG TABLET PO SCH ×2 (09:11→20:54)
[2020-10-26] MEDS: ASCORBIC ACID 500 MG TABLET PO SCH ×2 (09:11→20:51)
[2020-10-26] MEDS: CALCIUM (CARBONATE) 500 MG TABLET PO SCH (09:12)
[2020-10-26] MEDS: CETIRIZINE 10 MG TABLET PO SCH (09:12)
[2020-10-26] MEDS: METOPROLOL TARTRATE 25 MG TABLET PO SCH ×2 (09:12→20:52)
[2020-10-26] MEDS: metFORMIN 500 MG TABLET PO SCH ×2 (09:12→16:29)
[2020-10-26] MEDS: methylPREDNISolone SOD SUC 40 MG/1 ML VIAL IV SCH ×2 (09:20→20:52)
[2020-10-26] MEDS: clonazePAM 0.5 MG TABLET PO SCH ×2 (09:46→20:48)
[2020-10-26] MEDS: INSULIN LISPRO 100 UNIT/ML SUBCUT SCH ×4 (09:47→20:53)
[2020-10-26] MEDS: SODIUM CHLORIDE 0.45% 1,000 ML IV SCH ×2 (09:48→17:58)
[2020-10-26] MEDS ORDERED: ZALEPLON 5 MG CAPSULE PO PRN (10:32)
[2020-10-26] MEDS: TOLVAPTAN 15 MG TABLET PO SCH (12:08)
[2020-10-26] MEDS: cefTRIAXone 2,000 MG in SODIUM CHLORIDE 0.9% 100 ML IV SCH (16:22)
[2020-10-26] MEDS: FUROSEMIDE 40 MG TABLET PO SCH (16:29)
[2020-10-26] MEDS: SODIUM CHLORIDE/POTASSIUM CHLORIDE TABLET PO SCH ×2 (16:29→20:50)
[2020-10-26] MEDS: guaiFENesin/DM ER 600-30 MG TABLET PO PRN (17:55)
[2020-10-26] MEDS: SPIRONOLACTONE 50 MG TABLET PO SCH (20:50)
[2020-10-26] MEDS: ATORVASTATIN 40 MG TABLET PO SCH (20:52)
[2020-10-26] MEDS: TAMSULOSIN 0.4 MG CAPSULE PO SCH (20:52)
[2020-10-27] MEDS: ALBUTEROL/IPRATROPIUM 3 ML NEB RESP TX SCH ×3 (01:19→14:33)
[2020-10-27] MEDS: guaiFENesin/DM ER 600-30 MG TABLET PO PRN (05:27)
[2020-10-27 05:54] LABS: Hematocrit 28.7 VOL% (42.0-52.0); Hemoglobin 9.3 GM/DL (14.0-18.0); Immature Granulocytes % 0.8 %; Immature Granulocytes Absolute 0.04 #; Lymphocytes # 0.8 10*3/uL (1.4-4.0); Lymphocytes % 14.7 % (21.2-54.2); Mean Corpuscular HGB Conc 32.4 GM/DL (32-36); Mean Corpuscular Volume 92.9 FL (87-102); Mean Platelet Volume 9.6 FL (9.6-12.0); Monocytes % 9.4 % (1.7-12.7); Neutrophils % 75.1 % (38.7-73.9); Platelet Count 138 T/CUMM (130-400); Red Blood Count 3.09 MC/CUMM (3.8-5.5); Red Cell Distribution Width 13.3 % (9.3-17.3); White Blood Count 5.3 T/CUMM (4-12)
[2020-10-27 06:19] LABS: Calcium 8.3 MG/DL (8.5-10.1); Osmolality,Calculated 270.2 MOS/KG (273-304); Potassium 3.3 MMOL/L (3.5-5.1)
[2020-10-27] MEDS ORDERED: methylPREDNISolone SOD SUC 40 MG/1 ML VIAL IV SCH (07:15)
[2020-10-27] MEDS: CHOLECALCIFEROL 400 UNIT TABLET PO SCH (08:59)
[2020-10-27] MEDS: carBAMazepine 200 MG TABLET PO SCH (08:59)
[2020-10-27] MEDS: SODIUM CHLORIDE/POTASSIUM CHLORIDE TABLET PO SCH (08:59)
[2020-10-27] MEDS: CALCIUM (CARBONATE) 500 MG TABLET PO SCH (08:59)
[2020-10-27] MEDS: ASPIRIN EC 81 MG TABLET PO SCH (08:59)
[2020-10-27] MEDS ORDERED: POTASSIUM CHLORIDE 20 MEQ TABLET PO SCH (09:00)
[2020-10-27] MEDS: LUBIPROSTONE 24 MCG CAPSULE PO SCH (09:00)
[2020-10-27] MEDS: MAGNESIUM OXIDE 400 MG TABLET PO SCH (09:00)
[2020-10-27] MEDS: clonazePAM 0.5 MG TABLET PO SCH (09:00)
[2020-10-27] MEDS: risperiDONE 1 MG TABLET PO SCH (09:00)
[2020-10-27] MEDS: SPIRONOLACTONE 50 MG TABLET PO SCH (09:01)
[2020-10-27] MEDS: ASCORBIC ACID 500 MG TABLET PO SCH (09:01)
[2020-10-27] MEDS: TOLVAPTAN 15 MG TABLET PO SCH (09:01)
[2020-10-27] MEDS: OMEGA 3 ACID ETHYL ESTERS 1 GM CAPSULE PO SCH (09:01)
[2020-10-27] MEDS: metFORMIN 500 MG TABLET PO SCH (09:02)
[2020-10-27] MEDS: FUROSEMIDE 40 MG TABLET PO SCH (09:02)
[2020-10-27] MEDS: METOPROLOL TARTRATE 25 MG TABLET PO SCH (09:02)
[2020-10-27] MEDS: PANTOPRAZOLE 40 MG TABLET PO SCH (09:02)
[2020-10-27] MEDS: CETIRIZINE 10 MG TABLET PO SCH (09:02)
[2020-10-27] MEDS: INSULIN LISPRO 100 UNIT/ML SUBCUT SCH ×2 (09:38→11:31)
[2020-10-27 11:27] VITALS: BP 115/68
[2020-10-28] MEDS ORDERED: predniSONE 20 MG TABLET PO SCH (09:00)
== END 2020-10-27 16:05 | DRG 433 ==
LOC: N.ED 12:12 → SUATTDRO 16:33 → N.EDINP 16:33 → N.TELEN 17:27
PROVIDERS: ADMIT Internal Medicine; ATTEND Hospitalist

== ENCOUNTER 2021-12-13 09:00 | Inpatient (IN) ==
[2021-12-13 10:54] LABS: Basophils % 0.4 % (0.0-0.8); Eosinophils % 0.4 % (0.00-10.9); Hemoglobin 10.9 GM/DL (14.0-18.0); Immature Granulocytes % 0.6 %; Immature Granulocytes Absolute 0.03 #; Lymphocytes # 0.4 10*3/uL (1.4-4.0); Lymphocytes % 7.5 % (21.2-54.2); Mean Platelet Volume 9.9 FL (9.6-12.0); Monocytes # 0.4 10*3/uL (0.11-0.8); Monocytes % 7.5 % (1.7-12.7); Neutrophils % 83.6 % (38.7-73.9); Red Blood Count 3.55 MC/CUMM (3.8-5.5); Red Cell Distribution Width 15.9 % (9.3-17.3)
[2021-12-13 10:55] LABS: Platelet Count 98 T/CUMM (130-400)
[2021-12-13 11:01] LABS: INR 1.1; PT Patient Result 12.5 SECS (10.1-12.1)
[2021-12-13 11:06] LABS: Alanine Aminotransferase 24 U/L (16-61); Albumin 3.4 G/DL (3.4-5.0); Alkaline Phosphatase 188 U/L (45-117); Aspartate Amino Transferase 20 U/L (0-37); Blood Urea Nitrogen 20 MG/DL (7-18); Calcium 8.8 MG/DL (8.5-10.1); Carbon Dioxide 27 MMOL/L (21-32); Chloride 99 MMOL/L (98-107); Glucose 129 MG/DL (74-106); Osmolality,Calculated 264.8 MOS/KG (273-304); Potassium 4.4 MMOL/L (3.5-5.1); Sodium 130 MMOL/L (136-145); Total Protein 7.3 G/DL (6.4-8.2)
[2021-12-13] MEDS ORDERED: GLUCAGON 1 MG VIAL IM PRN (11:40)
[2021-12-13] MEDS ORDERED: ONDANSETRON 4 MG/2 ML VIAL IV PRN (11:40)
[2021-12-13] MEDS ORDERED: DEXTROSE 10% 250 ML BAG IV PRN (11:56)
[2021-12-13 13:44] LABS: RBC,Urine 2 /HPF (0-4)
[2021-12-13 13:46] LABS: Bilirubin,Urine Negative (Negative); Blood, Urine Negative (Negative); Glucose,Urine (UA) Negative (Negative); Ketones,Urine Negative (Negative); Nitrite,Urine Negative (Negative); Protein,Urine Negative (Negative); Urine Appearance Clear (Clear); Urine Color Yellow (Yellow); Urine Specific Gravity 1.015 (1.001-1.035); Urine Urobilinogen 0.2 eU/dL (<2.0); Urine pH 6.5 (4.5-8.0)
[2021-12-13] MEDS: RIFAXIMIN 550 MG TABLET PO SCH ×2 (15:07→21:56)
[2021-12-13 15:11] LABS: Barbiturates Screen,Urine Negative (Negative); Benzodiazepines Screen,Urine Negative (Negative); Cannabinoid Screen,Urine Negative (Negative); Opiate Screen,Urine Negative (Negative); Phencyclidine Screen,Urine Negative (Negative)
[2021-12-13] MEDS: LACTULOSE 20 GM/30 ML UDCUP PO SCH (18:43)
[2021-12-13] MEDS: SPIRONOLACTONE 50 MG TABLET PO SCH (21:56)
[2021-12-14] MEDS: OXcarbazepine 300 MG TABLET PO SCH ×3 (01:08→21:10)
[2021-12-14] MEDS: LACTULOSE 20 GM/30 ML UDCUP PO SCH ×4 (01:08→17:02)
[2021-12-14 05:51] LABS: Basophils % 0.3 % (0.0-0.8); Eosinophils # 0.1 10*3/uL (0.0-0.87); Eosinophils % 1.3 % (0.00-10.9); Hematocrit 32.6 VOL% (42.0-52.0); Hemoglobin 10.6 GM/DL (14.0-18.0); Immature Granulocytes % 0.5 %; Immature Granulocytes Absolute 0.02 #; Lymphocytes # 0.5 10*3/uL (1.4-4.0); Lymphocytes % 12.6 % (21.2-54.2); Mean Corpuscular HGB Conc 32.5 GM/DL (32-36); Mean Corpuscular Volume 93.4 FL (87-102); Mean Platelet Volume 9.3 FL (9.6-12.0); Monocytes # 0.4 10*3/uL (0.11-0.8); Monocytes % 10.7 % (1.7-12.7); Neutrophils % 74.6 % (38.7-73.9); Platelet Count 87 T/CUMM (130-400); Red Blood Count 3.49 MC/CUMM (3.8-5.5); Red Cell Distribution Width 16.2 % (9.3-17.3); White Blood Count 3.7 T/CUMM (4-12)
[2021-12-14 06:18] LABS: Platelet Estimate Decreased
[2021-12-14 06:31] LABS: Albumin 3.1 G/DL (3.4-5.0); Bilirubin,Total 0.8 MG/DL (0.20-1.00); Calcium 8.6 MG/DL (8.5-10.1); Osmolality,Calculated 268.1 MOS/KG (273-304); Potassium 4.2 MMOL/L (3.5-5.1); Risk Ratio 1.88; Thyroid Stimulating Hormone 1.65 uIU/ml (0.358-3.74); Total Protein 6.6 G/DL (6.4-8.2)
[2021-12-14] MEDS: PANTOPRAZOLE 40 MG VIAL IV SCH (09:46)
[2021-12-14] MEDS: SPIRONOLACTONE 50 MG TABLET PO SCH ×2 (09:46→21:10)
[2021-12-14] MEDS: APIXABAN 5 MG TABLET PO SCH ×2 (09:47→21:10)
[2021-12-14] MEDS: FUROSEMIDE 20 MG TABLET PO SCH (09:47)
[2021-12-14] MEDS: FINASTERIDE 5 MG TABLET PO SCH (09:50)
[2021-12-14] MEDS: TAMSULOSIN 0.4 MG CAPSULE PO SCH (21:10)
[2021-12-15] MEDS: LACTULOSE 20 GM/30 ML UDCUP PO SCH ×3 (00:58→13:35)
[2021-12-15] MEDS: OXcarbazepine 300 MG TABLET PO SCH ×2 (08:35→21:46)
[2021-12-15] MEDS: PANTOPRAZOLE 40 MG VIAL IV SCH (08:35)
[2021-12-15] MEDS: APIXABAN 5 MG TABLET PO SCH (08:35)
[2021-12-15] MEDS: SPIRONOLACTONE 50 MG TABLET PO SCH ×2 (08:35→21:45)
[2021-12-15] MEDS: FUROSEMIDE 20 MG TABLET PO SCH (08:35)
[2021-12-15] MEDS: FINASTERIDE 5 MG TABLET PO SCH (09:06)
[2021-12-15] MEDS: METOPROLOL SUCCINATE XL 25 MG TABLET PO SCH (09:42)
[2021-12-15] MEDS ORDERED: LACTULOSE 20 GM/30 ML UDCUP PO SCH (21:00)
[2021-12-15] MEDS: TAMSULOSIN 0.4 MG CAPSULE PO SCH (21:45)
[2021-12-16 06:00] LABS: Basophils % 0.1 % (0.0-0.8); Eosinophils # 0.1 10*3/uL (0.0-0.87); Eosinophils % 0.6 % (0.00-10.9); Hematocrit 36.6 VOL% (42.0-52.0); Hemoglobin 12.5 GM/DL (14.0-18.0); Immature Granulocytes % 0.7 %; Immature Granulocytes Absolute 0.06 #; Lymphocytes # 0.7 10*3/uL (1.4-4.0); Mean Corpuscular HGB Conc 34.2 GM/DL (32-36); Mean Corpuscular Volume 90.6 FL (87-102); Mean Platelet Volume 9.5 FL (9.6-12.0); Monocytes # 0.6 10*3/uL (0.11-0.8); Monocytes % 7.1 % (1.7-12.7); Neutrophils % 83.5 % (38.7-73.9); Red Blood Count 4.04 MC/CUMM (3.8-5.5); Red Cell Distribution Width 16.4 % (9.3-17.3)
[2021-12-16 06:02] LABS: Platelet Count 117 T/CUMM (130-400); White Blood Count 8.3 T/CUMM (4-12)
[2021-12-16 06:17] LABS: Bilirubin,Total 1.1 MG/DL (0.20-1.00); Osmolality,Calculated 264.7 MOS/KG (273-304); Potassium 3.9 MMOL/L (3.5-5.1); Total Protein 7.1 G/DL (6.4-8.2)
[2021-12-16] MEDS: PANTOPRAZOLE 40 MG VIAL IV SCH (09:32)
[2021-12-16] MEDS: FINASTERIDE 5 MG TABLET PO SCH (10:13)
[2021-12-16] MEDS: LACTULOSE 20 GM/30 ML UDCUP PO SCH ×3 (10:13→21:10)
[2021-12-16] MEDS: METOPROLOL SUCCINATE XL 25 MG TABLET PO SCH (10:14)
[2021-12-16] MEDS: SPIRONOLACTONE 50 MG TABLET PO SCH ×2 (10:14→21:09)
[2021-12-16] MEDS: OXcarbazepine 300 MG TABLET PO SCH ×2 (10:14→21:09)
[2021-12-16] MEDS: FUROSEMIDE 20 MG TABLET PO SCH (10:16)
[2021-12-16] MEDS ORDERED: traZODone 50 MG TABLET PO PRN (15:04)
[2021-12-16] MEDS: BENZTROPINE 0.5 MG TABLET PO SCH (21:09)
[2021-12-16] MEDS: risperiDONE 1 MG TABLET PO SCH (21:09)
[2021-12-16] MEDS: POTASSIUM CHLORIDE 20 MEQ TABLET PO SCH (21:09)
[2021-12-16] MEDS: FUROSEMIDE 40 MG TABLET PO SCH (21:10)
[2021-12-16] MEDS: TAMSULOSIN 0.4 MG CAPSULE PO SCH (21:10)
[2021-12-17 04:12] LABS: Basophils % 0.2 % (0.0-0.8); Eosinophils # 0.1 10*3/uL (0.0-0.87); Eosinophils % 1.3 % (0.00-10.9); Hemoglobin 11.3 GM/DL (14.0-18.0); Immature Granulocytes % 0.5 %; Immature Granulocytes Absolute 0.03 #; Lymphocytes # 0.6 10*3/uL (1.4-4.0); Lymphocytes % 9.6 % (21.2-54.2); Mean Corpuscular HGB Conc 33.2 GM/DL (32-36); Mean Corpuscular Volume 92.6 FL (87-102); Mean Platelet Volume 9.1 FL (9.6-12.0); Monocytes # 0.5 10*3/uL (0.11-0.8); Monocytes % 8.8 % (1.7-12.7); Neutrophils % 79.6 % (38.7-73.9); Platelet Count 103 T/CUMM (130-400); Red Blood Count 3.67 MC/CUMM (3.8-5.5); Red Cell Distribution Width 16.4 % (9.3-17.3); White Blood Count 6.2 T/CUMM (4-12)
[2021-12-17 04:35] LABS: Albumin 2.7 G/DL (3.4-5.0); Bilirubin,Total 0.9 MG/DL (0.20-1.00); Calcium 8.3 MG/DL (8.5-10.1); Osmolality,Calculated 267.5 MOS/KG (273-304); Total Protein 6.5 G/DL (6.4-8.2)
[2021-12-17 04:43] LABS: Platelet Estimate Decreased
[2021-12-17 04:44] LABS: Ovalocytes Few
[2021-12-17] MEDS ORDERED: SPIRONOLACTONE 100 MG TABLET PO SCH (09:00)
[2021-12-17] MEDS ORDERED: LACTULOSE 20 GM/30 ML UDCUP PO SCH (09:00)
[2021-12-17] MEDS: PANTOPRAZOLE 40 MG VIAL IV SCH (09:48)
[2021-12-17] MEDS: OXcarbazepine 300 MG TABLET PO SCH ×2 (09:49→20:38)
[2021-12-17] MEDS: FUROSEMIDE 20 MG TABLET PO SCH (09:49)
[2021-12-17] MEDS: FINASTERIDE 5 MG TABLET PO SCH (09:49)
[2021-12-17] MEDS: POTASSIUM CHLORIDE 20 MEQ TABLET PO SCH ×2 (09:49→20:37)
[2021-12-17] MEDS: METOPROLOL SUCCINATE XL 25 MG TABLET PO SCH (09:50)
[2021-12-17] MEDS: valACYclovir 500 MG TABLET PO SCH (09:50)
[2021-12-17] MEDS: SPIRONOLACTONE 50 MG TABLET PO SCH ×2 (09:50→20:38)
[2021-12-17] MEDS: BENZTROPINE 0.5 MG TABLET PO SCH ×2 (09:50→20:38)
[2021-12-17] MEDS: FUROSEMIDE 40 MG TABLET PO SCH ×2 (10:52→20:38)
[2021-12-17] MEDS: risperiDONE 1 MG TABLET PO SCH ×2 (11:08→20:38)
[2021-12-17] MEDS: ENOXAPARIN 100 MG/ML SYRINGE SUBCUT SCH ×2 (11:08→23:05)
[2021-12-17] MEDS: LACTULOSE 20 GM/30 ML UDCUP PO SCH ×3 (13:54→20:39)
[2021-12-17] MEDS: PROPRANOLOL 10 MG TABLET PO SCH ×2 (15:35→20:38)
[2021-12-17] MEDS: TAMSULOSIN 0.4 MG CAPSULE PO SCH (20:38)
[2021-12-18 05:33] LABS: Basophils % 0.2 % (0.0-0.8); Eosinophils # 0.1 10*3/uL (0.0-0.87); Eosinophils % 1.3 % (0.00-10.9); Hematocrit 33.4 VOL% (42.0-52.0); Hemoglobin 10.9 GM/DL (14.0-18.0); Immature Granulocytes % 0.8 %; Immature Granulocytes Absolute 0.05 #; Lymphocytes # 0.6 10*3/uL (1.4-4.0); Lymphocytes % 9.2 % (21.2-54.2); Mean Corpuscular HGB Conc 32.6 GM/DL (32-36); Mean Corpuscular Volume 94.4 FL (87-102); Mean Platelet Volume 9.3 FL (9.6-12.0); Monocytes # 0.5 10*3/uL (0.11-0.8); Monocytes % 8.6 % (1.7-12.7); Neutrophils % 79.9 % (38.7-73.9); Platelet Count 113 T/CUMM (130-400); Red Blood Count 3.54 MC/CUMM (3.8-5.5); Red Cell Distribution Width 16.1 % (9.3-17.3); White Blood Count 6.1 T/CUMM (4-12)
[2021-12-18 05:57] LABS: Albumin 2.9 G/DL (3.4-5.0); Bilirubin,Total 1.1 MG/DL (0.20-1.00); Osmolality,Calculated 270.4 MOS/KG (273-304); Total Protein 6.6 G/DL (6.4-8.2)
[2021-12-18] MEDS: FUROSEMIDE 40 MG TABLET PO SCH ×2 (09:08→20:52)
[2021-12-18] MEDS: BENZTROPINE 0.5 MG TABLET PO SCH ×2 (09:08→20:51)
[2021-12-18] MEDS: FINASTERIDE 5 MG TABLET PO SCH (09:08)
[2021-12-18] MEDS: valACYclovir 500 MG TABLET PO SCH (09:08)
[2021-12-18] MEDS: POTASSIUM CHLORIDE 20 MEQ TABLET PO SCH ×2 (09:09→20:52)
[2021-12-18] MEDS: risperiDONE 1 MG TABLET PO SCH ×2 (09:09→20:52)
[2021-12-18] MEDS: LACTULOSE 20 GM/30 ML UDCUP PO SCH ×4 (09:09→20:51)
[2021-12-18] MEDS: PROPRANOLOL 10 MG TABLET PO SCH ×3 (09:10→20:52)
[2021-12-18] MEDS: OXcarbazepine 300 MG TABLET PO SCH ×2 (09:10→20:52)
[2021-12-18] MEDS: SPIRONOLACTONE 50 MG TABLET PO SCH ×2 (09:12→20:52)
[2021-12-18] MEDS: FUROSEMIDE 20 MG TABLET PO SCH (09:16)
[2021-12-18] MEDS: PANTOPRAZOLE 40 MG VIAL IV SCH (09:19)
[2021-12-18] MEDS: FERROUS SULFATE 325 MG TABLET PO SCH (20:51)
[2021-12-18] MEDS: ATORVASTATIN 40 MG TABLET PO SCH (20:52)
[2021-12-18] MEDS: CALCIUM (CARBONATE) 500 MG TABLET PO SCH (20:52)
[2021-12-18] MEDS: TAMSULOSIN 0.4 MG CAPSULE PO SCH (20:52)
[2021-12-19 05:48] LABS: Basophils % 0.2 % (0.0-0.8); Eosinophils # 0.1 10*3/uL (0.0-0.87); Eosinophils % 1.3 % (0.00-10.9); Hematocrit 34.3 VOL% (42.0-52.0); Hemoglobin 11.2 GM/DL (14.0-18.0); Immature Granulocytes % 0.9 %; Immature Granulocytes Absolute 0.05 #; Lymphocytes # 0.5 10*3/uL (1.4-4.0); Lymphocytes % 8.8 % (21.2-54.2); Mean Corpuscular HGB Conc 32.7 GM/DL (32-36); Mean Platelet Volume 9.5 FL (9.6-12.0); Monocytes # 0.5 10*3/uL (0.11-0.8); Neutrophils % 79.8 % (38.7-73.9); Platelet Count 106 T/CUMM (130-400); Red Blood Count 3.69 MC/CUMM (3.8-5.5); Red Cell Distribution Width 16.2 % (9.3-17.3); White Blood Count 5.4 T/CUMM (4-12)
[2021-12-19 06:14] LABS: Albumin 2.8 G/DL (3.4-5.0); Calcium 8.7 MG/DL (8.5-10.1); Osmolality,Calculated 267.5 MOS/KG (273-304); Potassium 4.2 MMOL/L (3.5-5.1); Total Protein 6.5 G/DL (6.4-8.2)
[2021-12-19] MEDS: risperiDONE 1 MG TABLET PO SCH ×2 (09:40→20:50)
[2021-12-19] MEDS: valACYclovir 500 MG TABLET PO SCH (09:40)
[2021-12-19] MEDS: LACTULOSE 20 GM/30 ML UDCUP PO SCH ×4 (09:40→20:49)
[2021-12-19] MEDS: FUROSEMIDE 40 MG TABLET PO SCH ×2 (09:40→21:14)
[2021-12-19] MEDS: BENZTROPINE 0.5 MG TABLET PO SCH ×2 (09:40→21:12)
[2021-12-19] MEDS: FERROUS SULFATE 325 MG TABLET PO SCH ×2 (09:40→20:49)
[2021-12-19] MEDS: SPIRONOLACTONE 50 MG TABLET PO SCH ×2 (09:41→20:50)
[2021-12-19] MEDS: POTASSIUM CHLORIDE 20 MEQ TABLET PO SCH ×2 (09:41→20:49)
[2021-12-19] MEDS: CALCIUM (CARBONATE) 500 MG TABLET PO SCH ×2 (09:41→21:14)
[2021-12-19] MEDS: PROPRANOLOL 10 MG TABLET PO SCH ×3 (09:41→20:50)
[2021-12-19] MEDS: ASCORBIC ACID 500 MG TABLET PO SCH (09:41)
[2021-12-19] MEDS: FINASTERIDE 5 MG TABLET PO SCH (09:41)
[2021-12-19] MEDS: OXcarbazepine 300 MG TABLET PO SCH ×2 (09:42→20:49)
[2021-12-19] MEDS: PANTOPRAZOLE 40 MG VIAL IV SCH (09:42)
[2021-12-19] MEDS: TAMSULOSIN 0.4 MG CAPSULE PO SCH (20:50)
[2021-12-19] MEDS: ATORVASTATIN 40 MG TABLET PO SCH (20:50)
[2021-12-20 05:07] LABS: Basophils % 0.1 % (0.0-0.8); Eosinophils # 0.1 10*3/uL (0.0-0.87); Eosinophils % 0.7 % (0.00-10.9); Hematocrit 35.1 VOL% (42.0-52.0); Hemoglobin 11.3 GM/DL (14.0-18.0); Immature Granulocytes Absolute 0.07 #; Lymphocytes # 0.5 10*3/uL (1.4-4.0); Mean Corpuscular HGB Conc 32.2 GM/DL (32-36); Mean Corpuscular Volume 95.1 FL (87-102); Mean Platelet Volume 9.6 FL (9.6-12.0); Monocytes # 0.5 10*3/uL (0.11-0.8); Monocytes % 7.5 % (1.7-12.7); Neutrophils % 82.7 % (38.7-73.9); Platelet Count 109 T/CUMM (130-400); Red Blood Count 3.69 MC/CUMM (3.8-5.5); Red Cell Distribution Width 16.4 % (9.3-17.3); White Blood Count 6.8 T/CUMM (4-12)
[2021-12-20 05:25] LABS: Albumin 3.1 G/DL (3.4-5.0); Bilirubin,Total 0.7 MG/DL (0.20-1.00); Calcium 8.6 MG/DL (8.5-10.1); Osmolality,Calculated 276.1 MOS/KG (273-304); Potassium 4.7 MMOL/L (3.5-5.1); Total Protein 6.9 G/DL (6.4-8.2)
[2021-12-20] MEDS: valACYclovir 500 MG TABLET PO SCH (09:02)
[2021-12-20] MEDS: PANTOPRAZOLE 40 MG VIAL IV SCH (09:02)
[2021-12-20] MEDS: LACTULOSE 20 GM/30 ML UDCUP PO SCH ×4 (09:02→21:57)
[2021-12-20] MEDS: FUROSEMIDE 40 MG TABLET PO SCH ×2 (09:03→21:58)
[2021-12-20] MEDS: risperiDONE 1 MG TABLET PO SCH ×2 (09:03→21:58)
[2021-12-20] MEDS: OXcarbazepine 300 MG TABLET PO SCH ×2 (09:03→21:58)
[2021-12-20] MEDS: POTASSIUM CHLORIDE 20 MEQ TABLET PO SCH ×2 (09:03→21:58)
[2021-12-20] MEDS: PROPRANOLOL 10 MG TABLET PO SCH ×3 (09:03→21:58)
[2021-12-20] MEDS: SPIRONOLACTONE 50 MG TABLET PO SCH ×2 (09:03→21:57)
[2021-12-20] MEDS: FINASTERIDE 5 MG TABLET PO SCH (09:03)
[2021-12-20] MEDS: CALCIUM (CARBONATE) 500 MG TABLET PO SCH ×2 (09:03→21:58)
[2021-12-20] MEDS: ASCORBIC ACID 500 MG TABLET PO SCH (09:03)
[2021-12-20] MEDS: FERROUS SULFATE 325 MG TABLET PO SCH ×2 (09:03→21:57)
[2021-12-20] MEDS: ENOXAPARIN 100 MG/ML SYRINGE SUBCUT SCH (10:54)
[2021-12-20] MEDS ORDERED: BENZTROPINE 2 MG TABLET PO SCH (11:30)
[2021-12-20] MEDS: BENZTROPINE 0.5 MG TABLET PO SCH (11:47)
[2021-12-20] MEDS: TAMSULOSIN 0.4 MG CAPSULE PO SCH (21:57)
[2021-12-20] MEDS: BENZTROPINE 1 MG TABLET PO SCH (21:57)
[2021-12-20] MEDS: ATORVASTATIN 40 MG TABLET PO SCH (21:58)
[2021-12-21 06:04] LABS: Basophils % 0.1 % (0.0-0.8); Eosinophils # 0.1 10*3/uL (0.0-0.87); Eosinophils % 1.4 % (0.00-10.9); Hematocrit 36.2 VOL% (42.0-52.0); Hemoglobin 11.7 GM/DL (14.0-18.0); Immature Granulocytes % 1.2 %; Immature Granulocytes Absolute 0.09 #; Lymphocytes # 0.7 10*3/uL (1.4-4.0); Lymphocytes % 8.9 % (21.2-54.2); Mean Corpuscular HGB Conc 32.3 GM/DL (32-36); Mean Corpuscular Volume 95.5 FL (87-102); Mean Platelet Volume 10.4 FL (9.6-12.0); Monocytes # 0.6 10*3/uL (0.11-0.8); Monocytes % 7.5 % (1.7-12.7); Neutrophils % 80.9 % (38.7-73.9); Platelet Count 111 T/CUMM (130-400); Red Blood Count 3.79 MC/CUMM (3.8-5.5); Red Cell Distribution Width 16.7 % (9.3-17.3); White Blood Count 7.7 T/CUMM (4-12)
[2021-12-21 06:14] LABS: INR 1.1; PT Patient Result 12.2 SECS (10.1-12.1); Partial Thromboplastin Time 24.1 SECS (23.7-32.9)
[2021-12-21 06:29] LABS: Albumin 2.9 G/DL (3.4-5.0); Bilirubin,Total 0.8 MG/DL (0.20-1.00); Calcium 8.8 MG/DL (8.5-10.1); Osmolality,Calculated 272.4 MOS/KG (273-304); Potassium 4.6 MMOL/L (3.5-5.1); Total Protein 6.7 G/DL (6.4-8.2)
[2021-12-21] MEDS: SPIRONOLACTONE 50 MG TABLET PO SCH (09:48)
[2021-12-21] MEDS: LACTULOSE 20 GM/30 ML UDCUP PO SCH ×2 (09:48→13:46)
[2021-12-21] MEDS: BENZTROPINE 1 MG TABLET PO SCH (09:49)
[2021-12-21] MEDS: PROPRANOLOL 10 MG TABLET PO SCH (09:49)
[2021-12-21] MEDS: FERROUS SULFATE 325 MG TABLET PO SCH (09:49)
[2021-12-21] MEDS: POTASSIUM CHLORIDE 20 MEQ TABLET PO SCH (09:50)
[2021-12-21] MEDS: FINASTERIDE 5 MG TABLET PO SCH (09:50)
[2021-12-21] MEDS: CALCIUM (CARBONATE) 500 MG TABLET PO SCH (09:50)
[2021-12-21] MEDS: FUROSEMIDE 40 MG TABLET PO SCH (09:50)
[2021-12-21] MEDS: OXcarbazepine 300 MG TABLET PO SCH (09:51)
[2021-12-21] MEDS: risperiDONE 1 MG TABLET PO SCH (09:51)
[2021-12-21] MEDS: PANTOPRAZOLE 40 MG VIAL IV SCH (09:51)
[2021-12-21] MEDS: ASCORBIC ACID 500 MG TABLET PO SCH (09:52)
[2021-12-21] MEDS: valACYclovir 500 MG TABLET PO SCH (09:52)
[2021-12-21] MEDS ORDERED: ALBUMIN 25% 12.5 GM/50 ML VIAL IV PRN (10:51)
[2021-12-21 12:24] VITALS: BP 97/58
== END 2021-12-21 14:12 | disposition home or self-care (01) | DRG 432 ==
LOC: N.ED 09:00 → N.EDINP 09:00 → SUATTDRO 11:56 → N.TELES 13:04
PROVIDERS: ADMIT Hospitalist; ATTEND Emergency Medicine